=== PATIENT | male | born 1950 | race Caucasian/White ===

== ENCOUNTER 2017-04-05 09:15 | Outpatient (CLI) | payer MEDICARE, OTHER ==
[2017-04-05 14:02] LABS: BASOPHILS # (AUTO) 0.1 10^3/uL (0.0-0.1); BASOPHILS % (AUTO) 0.7 %; EOSINOPHILS # (AUTO) 0.2 10^3/uL (0.0-0.7); EOSINOPHILS % (AUTO) 1.8 %; HCT - HEMATOCRIT 34.8 % (42.0-52.0); HGB - HEMOGLOBIN 11.2 g/dL (14.0-18.0); LYMPHOCYTES % (AUTO) 22.3 %; MEAN CORPUSCULAR HEMOGLOBIN 24.6 pg (27.0-31.0); MEAN CORPUSCULAR HGB CONC 32.2 g/dL (32.0-36.0); MEAN CORPUSCULAR VOLUME 76.4 fL (80.0-94.0); MEAN PLATELET VOLUME 7.6 fL (7.4-11.4); MONOCYTES # (AUTO) 0.6 10^3/uL (0.0-1.0); MONOCYTES % (AUTO) 6.8 %; NEUTROPHILS % (AUTO) 68.4 %; NUCLEATED RED BLOOD CELLS AUTO 0.1 /100WBC; RED BLOOD COUNT 4.55 10^6/uL (4.70-6.10); UNCORRECTED WHITE BLOOD COUNT 8.7 x10^3/uL; WHITE BLOOD COUNT 8.7 x10^3/uL (4.8-10.8)
[2017-04-05 14:34] LABS: ALBUMIN/GLOBULIN RATIO 1.4 (1.0-2.2); BILIRUBIN,TOTAL 0.5 mg/dL (0.2-1.0); BUN - BLOOD UREA NITROGEN 17 mg/dL (6-20); CALCIUM 9.1 mg/dL (8.5-10.3); CARBON DIOXIDE - CO2 24 mmol/L (21-32); CHLORIDE 100 mmol/L (101-111); CHOL/HDL RATIO 5.2 (<5.0); CHOLESTEROL 224 mg/dL; CREATININE 1.2 mg/dL (0.6-1.2); GFR - MDRD 60 (>89); GLUCOSE 98 mg/dL (70-100); HDL CHOLESTEROL 43 mg/dL; LDL/HDL RATIO 3.4 (<3.6); POTASSIUM 3.3 mmol/L (3.5-5.0); SODIUM 134 mmol/L (135-145); TOTAL PROTEIN 7.1 g/dL (6.7-8.2); TRIGLYCERIDES 169 mg/dL; VLDL CHOLESTEROL 34 mg/dL
== END 2017-04-05 09:16 | disposition home or self-care (01) ==
LOC: LAB.WCP 09:15
PROVIDERS: ATTEND Physician Assistant Medical
DX: E78.5 Hyperlipidemia, unspecified (principal); D50.9 Iron deficiency anemia, unspecified; K21.9 Gastro-esophageal reflux disease without esophagitis
CPT/HCPCS: 36415; 80053; 80061; 82728; 85025

== ENCOUNTER 2017-05-05 15:34 | Outpatient (CLI) | payer MEDICARE, OTHER ==
[2017-05-05 13:19] LABS: BASOPHILS % (AUTO) 0.4 %; EOSINOPHILS # (AUTO) 0.3 10^3/uL (0.0-0.7); EOSINOPHILS % (AUTO) 4.4 %; HCT - HEMATOCRIT 33.6 % (42.0-52.0); HGB - HEMOGLOBIN 10.8 g/dL (14.0-18.0); LYMPHOCYTES % (AUTO) 31.4 %; MEAN CORPUSCULAR HEMOGLOBIN 25.1 pg (27.0-31.0); MEAN CORPUSCULAR HGB CONC 32.3 g/dL (32.0-36.0); MEAN CORPUSCULAR VOLUME 77.8 fL (80.0-94.0); MEAN PLATELET VOLUME 7.9 fL (7.4-11.4); MONOCYTES # (AUTO) 0.6 10^3/uL (0.0-1.0); NEUTROPHILS # (AUTO) 3.4 10^3/uL (1.5-6.6); NEUTROPHILS % (AUTO) 54.8 %; NUCLEATED RED BLOOD CELLS AUTO 0.1 /100WBC; RED BLOOD COUNT 4.31 10^6/uL (4.70-6.10); RED CELL DISTRIBUTION WIDTH 18.8 % (12.0-15.0); UNCORRECTED WHITE BLOOD COUNT 6.2 x10^3/uL; WHITE BLOOD COUNT 6.2 x10^3/uL (4.8-10.8)
[2017-05-05 13:57] LABS: CHOL/HDL RATIO 3.4 (<5.0); CHOLESTEROL 139 mg/dL; HDL CHOLESTEROL 41 mg/dL; IRON 213 ug/dL (45-182); LDL/HDL RATIO 1.9 (<3.6); TOTAL IRON BINDING CAPACITY 476 ug/dL (250-450); TRANSFERRIN 340 mg/dL (180-329); TRIGLYCERIDES 94 mg/dL; VLDL CHOLESTEROL 19 mg/dL
== END 2017-05-05 15:35 | disposition home or self-care (01) ==
LOC: LAB.WCP 15:34
PROVIDERS: ATTEND Physician Assistant Medical
DX: E78.5 Hyperlipidemia, unspecified (principal); D50.9 Iron deficiency anemia, unspecified
CPT/HCPCS: 36415; 80061; 82728; 83540; 84466; 85025

== ENCOUNTER 2017-12-31 17:58 | Emergency (ER) | payer MEDICARE, OTHER ==
[2017-12-31] MEDS ORDERED: METOPROLOL 5 MG/5 ML VIAL IVP STA (18:15)
[2017-12-31] MEDS ORDERED: HEPARIN 25000UNITS/500ML (D5W) 25,000 UNIT/500 ML BAG IV STA (18:15)
[2017-12-31] MEDS ORDERED: ASPIRIN CHEW 81 MG TABLET ONE ×2 (18:22→18:48)
[2017-12-31] MEDS ORDERED: CLOPIDOGREL 300 MG TABLET PO ONE ×2 (18:22→18:48)
[2017-12-31] MEDS ORDERED: HEPARIN 5,000 UNIT/ML VIAL ONE ×2 (18:22→18:48)
[2017-12-31 18:24] VITALS: BP 176/88
--- NOTE | 2017-12-31 18:24 | ED Physician Documentation ---
PD HPI CHEST PAIN - Stated complaint Stated Complaint: CHEST PX - Chief complaint Chief Complaint: Cardiac - History obtained from History obtained from: Patient - History of Present Illness Timing - onset: How many hours ago (2) Timing - onset during: Rest, Light activity Timing - duration: Hours (2) Timing - details: Abrupt onset, Still present Quality: Pressure, Tightness, Aching, Pain Location: Substernal, Left chest Radiation: Back. No: Jaw, Neck Improved by: No: Rest, Antacids Worsened by: No: Exertion, Inspiration, Movement Associated symptoms: Shortness of air, Feeling faint / dizzy, General Weakness. No: Nausea, Palpitations, Cough Similar symptoms before: Has not had sx before, Other (had ID about 9 years ago with stent placed and no subsequent heart symptoms. Does not follow with Sonoscope Operator at this time.) Recently seen: Not recently seen Review of Systems Constitutional: denies: Fever, Chills Nose: denies: Rhinorrhea / runny nose, Congestion Throat: denies: Sore throat Cardiac: reports: Chest pain / pressure (just today; no exertional symptoms.) Respiratory: denies: Cough GI: denies: Abdominal Pain, Nausea, Vomiting : denies: Dysuria, Frequency Skin: denies: Rash, Lesions Neurologic: denies: Generalized weakness, Focal weakness, Numbness, Near syncope PD PAST MEDICAL HISTORY - Past Medical History Cardiovascular: Hypertension, High cholesterol, Coronary artery disease, ID (9 years ago with stent) Respiratory: None Endocrine/Autoimmune: None GI: GERD, Colon polyps : None HEENT: None Psych: None Musculoskeletal: None Derm: None - Past Surgical History General: Appendectomy, Colonoscopy, EGD Cardiovascular: Coronary stent, Cardiac catheterization - Present Medications Home Medications: Ambulatory Orders Medication Instructions Recorded Confirmed Aspirin [Durga] 325 mg ORAL DAILY 01/05/16 03/02/16 Esomeprazole [NexIUM] 40 mg ORAL DAILY 01/05/16 03/02/16 Simvastatin 40 mg ORAL DAILY 01/05/16 03/02/16 raNITIdine [Zantac] 250 mg ORAL BID 01/05/16 03/03/16 Lisinopril 40 mg PO DAILY 03/02/16 03/02/16 - Allergies Allergies/Adverse Reactions: Allergies Allergy/AdvReac Type Severity Reaction Status Date / Time Penicillins Allergy Rash Verified 01/05/16 14:28 - Family History Family history: reports: Non contributory, Unknown PD ED PE NORMAL - Vitals Vital signs reviewed: Yes - General General: Alert and oriented X 3, No acute distress, Well developed/nourished - HEENT HEENT: Pharynx benign - Neck Neck: Supple, no meningeal sign, No adenopathy - Cardiac Cardiac: RRR, No murmur - Respiratory Respiratory: Clear bilaterally - Abdomen Abdomen: Soft, Non tender - Derm Derm: Normal color, Warm and dry - Extremities Extremities: No deformity, No tenderness to palpate, Normal ROM s pain, No edema , No calf tenderness / cord - Neuro Neuro: Alert and oriented X 3, No motor deficit, Normal speech - Psych Psych: Normal mood, Normal affect Results - Vitals Vitals: Vital Signs - 24 hr 12/31/17 18:02 Temperature 36.0 C L Heart Rate 90 Respiratory 17 Rate Blood Pressure 191/107 H O2 Saturation 98 Oxygen O2 Source Room air - EKG (time done) triage Rhythm: NSR [place]: Normal Intervals: Normal [place] QRS: Normal Ischemia: ST elevation c/w ischemia (inferior lead), ST depression (lateral leads) PD MEDICAL DECISION MAKING - ED course Complexity details: considered differential (significant ST changes (elevations with reciprocal depressions) c/w STEMI. ), d/w patient, d/w securities consultant - Critical Care Time(min): 20 Time Includes: Direct patient care, Document care, Coordinate care, Medical consult, See progress note Data interpretation: Pulse ox, See progress note Procedures excluded from critical care time: EKG Departure - Departure Disposition: 02 Transfer Acute Care Hosp Clinical Impression: ST elevation myocardial infarction (STEMI) of inferior wall Condition: Stable Record reviewed to determine appropriate education?: Yes
[2017-12-31 18:36] LABS: BASOPHILS % (AUTO) 0.4 %; EOSINOPHILS # (AUTO) 0.1 10^3/uL (0.0-0.7); EOSINOPHILS % (AUTO) 2.1 %; HGB - HEMOGLOBIN 10.6 g/dL (14.0-18.0); LYMPHOCYTES # (AUTO) 1.1 10^3/uL (1.5-3.5); LYMPHOCYTES % (AUTO) 19.9 %; MEAN CORPUSCULAR HEMOGLOBIN 23.2 pg (27.0-31.0); MEAN CORPUSCULAR HGB CONC 30.9 g/dL (32.0-36.0); MEAN CORPUSCULAR VOLUME 75.1 fL (80.0-94.0); MEAN PLATELET VOLUME 7.6 fL (7.4-11.4); MONOCYTES # (AUTO) 0.5 10^3/uL (0.0-1.0); MONOCYTES % (AUTO) 8.5 %; NEUTROPHILS # (AUTO) 3.7 10^3/uL (1.5-6.6); NEUTROPHILS % (AUTO) 69.1 %; PLT - PLATELET COUNT 293 10^3/uL (130-450); RED BLOOD COUNT 4.58 10^6/uL (4.70-6.10); RED CELL DISTRIBUTION WIDTH 17.5 % (12.0-15.0); WHITE BLOOD COUNT 5.4 x10^3/uL (4.8-10.8)
[2017-12-31 18:45] LABS: ALBUMIN 4.1 g/dL (3.2-5.5); ALBUMIN/GLOBULIN RATIO 1.2 (1.0-2.2); BILIRUBIN,TOTAL 0.4 mg/dL (0.2-1.0); CALCIUM 9.2 mg/dL (8.5-10.3); CREATININE 1.1 mg/dL (0.6-1.2); TOTAL PROTEIN 7.5 g/dL (6.7-8.2)
[2017-12-31] MEDS ORDERED: METOPROLOL TARTRATE 50 MG TABLET ONE (18:48)
[2017-12-31] MEDS ORDERED: NITROGLYCERIN SL 0.4 MG TABLET SL ONE (18:48)
[2017-12-31] MEDS ORDERED: AZITHROMYCIN 250 MG TABLET PO ONE (18:50)
[2017-12-31] MEDS ORDERED: ASPIRIN CHEW 81 MG TABLET PO STA (18:52)
[2017-12-31] MEDS ORDERED: HEPARIN 5,000 UNIT/ML VIAL IVP STA (18:52)
[2017-12-31] MEDS ORDERED: CLOPIDOGREL 300 MG TABLET PO STA (18:52)
== END 2017-12-31 18:27 | disposition short-term general hospital (02) ==
LOC: ED 17:58
DX: I21.19 ST elevation (STEMI) myocardial infarction involving other coronary artery of inferior wall (principal); I10 Essential (primary) hypertension; E78.00 Pure hypercholesterolemia, unspecified; I25.10 Atherosclerotic heart disease of native coronary artery without angina pectoris; I25.2 Old myocardial infarction; K21.9 Gastro-esophageal reflux disease without esophagitis; Z86.010 Personal history of colon polyps; Z79.82 Long term (current) use of aspirin
CPT/HCPCS: 36415; 80053; 83690; 84484; 85025; 93005; 96374; 99284; 99285; A9270

== ENCOUNTER 2017-12-31 18:28 | Outpatient (CLI) | payer MEDICARE, OTHER | END 2017-12-31 18:29 | disposition short-term general hospital (02) | LOC: EMS 18:28 | PROVIDERS: ATTEND Surgery | DX: I21.3 ST elevation (STEMI) myocardial infarction of unspecified site (principal) | CPT/HCPCS: A0425; A0426 ==

== ENCOUNTER 2018-05-10 16:26 | Observation (INO) | payer MEDICARE, OTHER ==
[2018-05-10 17:10] LABS: EOSINOPHILS # (AUTO) 0.1 10^3/uL (0.0-0.7); EOSINOPHILS % (AUTO) 2.7 %; LYMPHOCYTES % (AUTO) 20.8 %; MEAN CORPUSCULAR HEMOGLOBIN 18.9 pg (27.0-31.0); MEAN CORPUSCULAR HGB CONC 29.4 g/dL (32.0-36.0); MEAN CORPUSCULAR VOLUME 64.3 fL (80.0-94.0); MEAN PLATELET VOLUME 7.5 fL (7.4-11.4); MONOCYTES # (AUTO) 0.5 10^3/uL (0.0-1.0); MONOCYTES % (AUTO) 10.4 %; NEUTROPHILS # (AUTO) 3.2 10^3/uL (1.5-6.6); NEUTROPHILS % (AUTO) 65.1 %; PLT - PLATELET COUNT 332 10^3/uL (130-450); RED BLOOD COUNT 3.63 10^6/uL (4.70-6.10)
[2018-05-10 17:13] LABS: HGB - HEMOGLOBIN 6.9 g/dL (14.0-18.0)
[2018-05-10 17:15] LABS: ALBUMIN 4.2 g/dL (3.2-5.5); ALBUMIN/GLOBULIN RATIO 1.3 (1.0-2.2); ALKALINE PHOSPHATASE 69 IU/L (42-121); ALT ALANINE AMINOTRANSFERASE 16 IU/L (10-60); AST ASPARTATE AMINOTRANSFERASE 17 IU/L (10-42); BILIRUBIN,TOTAL < 0.2 mg/dL (0.2-1.0); BUN - BLOOD UREA NITROGEN 19 mg/dL (6-20); CARBON DIOXIDE - CO2 26 mmol/L (21-32); CHLORIDE 104 mmol/L (101-111); CREATININE 0.9 mg/dL (0.6-1.2); GFR - MDRD 84 (>89); GLUCOSE 119 mg/dL (70-100); LIPASE 24 U/L (22-51); SODIUM 137 mmol/L (135-145); TOTAL PROTEIN 7.4 g/dL (6.7-8.2)
[2018-05-10 17:26] LABS: PLATELET ESTIMATE, MANUAL NORMAL (130-450,000) (NORMAL); PLATELET MORPHOLOGY NORMAL APPEARANCE (NORMAL)
--- NOTE | 2018-05-10 17:32 | ED Physician Documentation ---
PD HPI CHEST PAIN - Stated complaint Stated Complaint: CHEST PX - Chief complaint Chief Complaint: Cardiac - History obtained from History obtained from: Patient - History of Present Illness Timing - onset: How many minutes ago (45) Timing - duration: Minutes (40) Timing - details: Abrupt onset, Now resolved Pain level max: 8 Pain level now: 0 Quality: Other (BURNING) Location: Other ([place]) Radiation: Other (NO RADIATION) Improved by: Antacids Worsened by: Other (NOTHING) Associated symptoms: No: Shortness of air, Diaphoresis, Nausea, Vomiting, Feeling faint / dizzy, General Weakness, Palpitations, Cough Similar symptoms before: Other (HAS HX OF GERD/REFLUX) Recently seen: Not recently seen - Additional information Additional information: Pt complained of midsternal burning pain 45 minutes ago. Took his zantac and nexium without relief. Pain did not radiate but last 40 minutes. Dnies associated symptoms. Pt stated had an [place] lst December 31, 2017 and had a stent put in at [facility]. Pt stated at noon he had [employer] sandwich. Denies any trauma, travel or immobility. States active and working where he does a lot of walking. Review of Systems Ten Systems: 10 systems reviewed and negative Constitutional: denies: Fever Nose: denies: Congestion Cardiac: reports: Chest pain / pressure. denies: Palpitations, Pedal edema Respiratory: denies: Dyspnea, Cough GI: denies: Abdominal Pain, Nausea Neurologic: denies: Generalized weakness, Near syncope, Syncope PD PAST MEDICAL HISTORY - Past Medical History Cardiovascular: Hypertension, High cholesterol, Coronary artery disease, Angina, [place] Respiratory: None Endocrine/Autoimmune: None GI: GERD, Colon polyps : None HEENT: None Psych: None Musculoskeletal: None Derm: None - Past Surgical History Past Surgical History: Yes General: Appendectomy, Colonoscopy, EGD Cardiovascular: Coronary stent, Cardiac catheterization - Present Medications Home Medications: Ambulatory Orders Medication Instructions Recorded Confirmed Aspirin [Durga] 325 mg ORAL DAILY 01/05/16 03/02/16 Esomeprazole [NexIUM] 40 mg ORAL DAILY 01/05/16 03/02/16 Simvastatin 40 mg ORAL DAILY 01/05/16 03/02/16 raNITIdine [Zantac] 250 mg ORAL BID 01/05/16 03/03/16 Lisinopril 40 mg PO DAILY 03/02/16 03/02/16 - Allergies Allergies/Adverse Reactions: Allergies Allergy/AdvReac Type Severity Reaction Status Date / Time Penicillins Allergy Rash Verified 05/10/18 16:32 - Social History Does the pt smoke?: No Smoking Status: Never smoker PD ED PE NORMAL - Vitals Vital signs reviewed: Yes - General General: Alert and oriented X 3, No acute distress, Well developed/nourished - HEENT HEENT: Moist mucous membranes - Neck Neck: Supple, no meningeal sign - Cardiac Cardiac: RRR, No murmur - Respiratory Respiratory: No respiratory distress, Clear bilaterally - Abdomen Abdomen: Normal bowel sounds, Soft, Non tender, Non distended - Derm Derm: Warm and dry - Extremities Extremities: No deformity, Normal ROM s pain - Neuro Neuro: Alert and oriented X 3 - Psych Psych: Normal mood, Normal affect Results - Vitals Vitals: Vital Signs - 24 hr 05/10/18 05/10/18 05/10/18 16:30 17:40 18:53 Temperature 36.5 C Heart Rate 95 79 73 Respiratory 16 16 17 Rate Blood Pressure 177/91 H 153/70 H 155/77 H O2 Saturation 98 98 98 05/10/18 05/10/18 19:35 19:47 Temperature 36.9 C 36.7 C Heart Rate 72 75 Respiratory 17 17 Rate Blood Pressure 152/85 H 152/85 H O2 Saturation Oxygen O2 Source Room air - EKG (time done) 1631 Rate: Rate (enter#) Rhythm: NSR [place]: LAD Intervals: Normal [place] QRS: Normal Ischemia: Normal ST segments - Labs Labs: Laboratory Tests 05/10/18 05/10/18 05/10/18 16:40 16:40 16:40 WBC 5.0 RBC 3.63 L Hgb 6.9 L* Hct 23.4 L MCV 64.3 L MCH 18.9 L MCHC 29.4 L RDW 21.0 H Plt Count 332 MPV 7.5 Neut # (Auto) 3.2 Lymph # (Auto) 1.0 L [place] # (Auto) 0.5 Eos # (Auto) 0.1 Baso # (Auto) 0.0 Absolute Nucleated RBC 0.00 Nucleated RBC % 0.1 Manual Slide Review Indicated WBC Morphology NORMAL APPEARANCE Platelet Estimate NORMAL (130-450,000) Platelet Morphology NORMAL APPEARANCE RBC Morph Micro Appear 3+ MICROCYTOSIS Sodium 137 Potassium 4.0 Chloride 104 Carbon Dioxide 26 Anion Gap 7.0 BUN 19 Creatinine 0.9 Estimated GFR (MDRD) 84 L Glucose 119 H Calcium 9.0 Total Bilirubin < 0.2 L AST 17 ALT 16 Alkaline Phosphatase 69 Troponin I < 0.04 Total Protein 7.4 Albumin 4.2 Globulin 3.2 Albumin/Globulin Ratio 1.3 Lipase 24 Blood Type Blood Type Recheck Antibody Screen Crossmatch IS Only 05/10/18 05/10/18 05/10/18 16:40 17:39 17:39 WBC 4.9 RBC 3.47 L Hgb 6.5 L* Hct 22.3 L MCV 64.4 L MCH 18.7 L MCHC 29.0 L RDW 20.6 H Plt Count 294 MPV 7.8 Neut # (Auto) 3.5 Lymph # (Auto) 0.8 L [place] # (Auto) 0.5 Eos # (Auto) 0.1 Baso # (Auto) 0.0 Absolute Nucleated RBC 0.00 Nucleated RBC % 0.0 Manual Slide Review WBC Morphology Platelet Estimate Platelet Morphology RBC Morph Micro Appear Sodium Potassium Chloride Carbon Dioxide Anion Gap BUN Creatinine Estimated GFR (MDRD) Glucose Calcium Total Bilirubin AST ALT Alkaline Phosphatase Troponin I Total Protein Albumin Globulin Albumin/Globulin Ratio Lipase Blood Type O POSITIVE Blood Type Recheck O POSITIVE Antibody Screen NEGATIVE Crossmatch IS Only See Detail 05/10/18 19:25 WBC RBC Hgb Hct MCV MCH MCHC RDW Plt Count MPV Neut # (Auto) Lymph # (Auto) [place] # (Auto) Eos # (Auto) Baso # (Auto) Absolute Nucleated RBC Nucleated RBC % Manual Slide Review WBC Morphology Platelet Estimate Platelet Morphology RBC Morph Micro Appear Sodium Potassium Chloride Carbon Dioxide Anion Gap BUN Creatinine Estimated GFR (MDRD) Glucose Calcium Total Bilirubin AST ALT Alkaline Phosphatase Troponin I 0.07 Total Protein Albumin Globulin Albumin/Globulin Ratio Lipase Blood Type Blood Type Recheck Antibody Screen Crossmatch IS Only PD MEDICAL DECISION MAKING - ED course Complexity details: reviewed results, re-evaluated patient ([id number] Pt informed of test results including low hemoglogin. Agreed to blood transfusion. Denies any chest pain or SOB. Per [facility], hospitalist had been called. 1846 Pt NAD. Awaiting hospitalist to return phone call. 1909 Pt denies any cp/sob. Rectal exam - no mass, nontender. Brown yellow stool guiac negative. Still waiting for hospitalist per [facility] [place] considered differential (ACS, NSTEMI, GERD), d/w patient, d/w family, other ([address] Chapman returned phone call. Case discussed in details. He wants anemia panel to be ordered prior to blood transfusion. He will admit pt to observation. Pt's nurse informed of added lab orders prior to blood transfusion.) Departure - Departure Disposition: 66 [facility] DC/Xfer Clinical Impression: Chest pain Qualifiers: Chest pain type: other chest pain Qualified Code(s): R07.89 - Other chest pain Anemia Qualifiers: Anemia type: unspecified type Qualified Code(s): D64.9 - Anemia, unspecified Condition: Good
--- NOTE | 2018-05-10 17:35 | XRAY Report ---
Reason: chest pain Procedure Date: 05/10/2018 Accession Number: [id number] / [id number] Procedure: XR - Chest 2 View X-Ray CPT Code: 02653 FULL RESULT: EXAM: CHEST RADIOGRAPHY EXAM DATE: 05/10/2018 05:16 PM. CLINICAL HISTORY: Chest pain. COMPARISON: CHEST 2 VIEW PA/LAT 04/10/2017 9:26 AM. TECHNIQUE: 2 views. FINDINGS: Lungs/Pleura: No focal opacities evident. No pleural effusion. No pneumothorax. Normal volumes. Mediastinum: There is a small to moderate hiatal hernia appearing without significant change in size. The heart size is normal. There is mild atherosclerotic calcification of the aortic arch. Other: None. IMPRESSION: Negative for acute cardiopulmonary abnormality. Small to moderate hiatal hernia is unchanged. RADIA
[2018-05-10 18:01] LABS: BASOPHILS % (AUTO) 0.4 %; EOSINOPHILS # (AUTO) 0.1 10^3/uL (0.0-0.7); EOSINOPHILS % (AUTO) 2.1 %; LYMPHOCYTES # (AUTO) 0.8 10^3/uL (1.5-3.5); LYMPHOCYTES % (AUTO) 17.1 %; MEAN CORPUSCULAR HEMOGLOBIN 18.7 pg (27.0-31.0); MEAN CORPUSCULAR VOLUME 64.4 fL (80.0-94.0); MEAN PLATELET VOLUME 7.8 fL (7.4-11.4); MONOCYTES # (AUTO) 0.5 10^3/uL (0.0-1.0); MONOCYTES % (AUTO) 9.7 %; NEUTROPHILS # (AUTO) 3.5 10^3/uL (1.5-6.6); NEUTROPHILS % (AUTO) 70.7 %; PLT - PLATELET COUNT 294 10^3/uL (130-450); RED BLOOD COUNT 3.47 10^6/uL (4.70-6.10); WHITE BLOOD COUNT 4.9 x10^3/uL (4.8-10.8)
[2018-05-10 18:04] LABS: HGB - HEMOGLOBIN 6.5 g/dL (14.0-18.0)
[2018-05-10 18:06] LABS: RED CELL DISTRIBUTION WIDTH 20.6 % (12.0-15.0)
[2018-05-10] MEDS ORDERED: MORPHINE 2 MG/ML CARPUJECT IVP PRN (19:50)
[2018-05-10] MEDS ORDERED: NITROGLYCERIN SL 0.4 MG TABLET SL PRN (19:50)
[2018-05-10] MEDS ORDERED: ZOLPIDEM 5 MG TABLET PO PRN (19:50)
--- NOTE | 2018-05-10 20:01 | HISTORY & PHYSICAL EXAMINATION ---
Chief Complaint - Chief Complaint Chief Complaint: Chest pain History of Present Illness - Admitted From Admitted From:: Emergency department - History Obtained From Records Reviewed: Yes History obtained from: Patient Exam Limitations: None - History of Present Illness HPI Comment/Other: Patient is a 67-year-old gentleman with a past medical history significant for coronary artery disease status post WV in December 2017 status post stent, history of carotid stenosis status post bilateral angioplasty, hypertension, hyperlip idemia and GERD who presented to the emergency department with a chief complaint of chest pain. The patient states that he was in his normal state of health until around 4 PM this afternoon. He states that he had had a jalapeno sandwich and shortly after this began to experience chest pain. He states the chest pain was located in the center of the chest and was sub-sternal without any radiation . He states that it felt similar to the chest pain he had when he had his WV in December but it was much more mild. He states that he thought maybe it was his acid reflux as he had just eaten a jalapeno sandwich and he took some Tums and Nexium. He states that the chest pain remained constant and was not resolving. At this point he decided to come to the emergency department. He states that the chest pain lasted for a total of 45 minutes and had resolved by the time he came to the emergency department. He states that he had no further chest pain after he arrived in the ER. The patient denies any nausea, abdominal pain, diaphoresis or palpitations in association with the chest pain. He denies any black or bloody stools. He denies any shortness of breath at rest or with exertion. The patient states that the chest pain started while he was lying in bed. The patient denies any recent fatigue or lightheadedness. The patient denies any coffee-ground emesis, hematuria or hemoptysis. The patient denies any diarrhea but does state he has been constipated. Patient denies any headaches, blurred vision, runny nose, sore throat, nasal congestion, if occult he swallowing, orthopnea, PND, increased lower extremity swelling, vomiting, urinary urgency, urinary frequency, dysuria, joint swelling, joint pain, muscle aches, back pain, neck stiffness, recent unintentional weight loss, changes in his appetite, skin rashes, hair loss, night sweats or any focal neurologic deficits. On presentation to the emergency department the patient was afebrile his heart rate was mildly elevated at 95 and he was hypertensive with a blood pressure of 177/91. Patient otherwise was not in any respiratory distress and was saturating well on room air. The patient underwent initial EKG which showed some mild ST depression in lead I but otherwise had no major ischemic changes. The patient's chest x-ray was negative for acute cardiopulmonary abnormality. It did show a small to moderate hiatal hernia. The patient then underwent routine lab work and his initial troponin was less than 0.04. The lab work was remarkable for a hemoglobin of 6.9. The patient's previous hemoglobin in December 2017 was 10.6. Given that this was such an acute change the hemoglobin was rechecked and was found to be 6.5. Patient's electrolytes were within normal limits. The patient did undergo iron studies which did show a iron deficiency anemia with a low iron, elevated TIBC and a low ferritin. The patient was placed in observation for symptomatic anemia and will get blood transfusion and further monitoring. The patient did have a stool guaiac in the emergency department which was negative. The patient will also be monitored for chest pain. The patient states that he had a colonoscopy in 2016 with 2 polyps removed both of which were negative for adenoma and carcinoma. The patient did have some sigmoid diverticulosis but no other major findings. History - Past Medical History Cardiovascular: reports: Hypertension, High cholesterol, Coronary artery disease, Angina, [place] Respiratory: reports: None Neuro: reports: None Endocrine/Autoimmune: reports: None GI: reports: GERD, Colon polyps : reports: None HEENT: reports: None Psych: reports: None Musculoskeletal: reports: None Derm: reports: None MRSA Hx?: No - Past Surgical History General: reports: Appendectomy, Colonoscopy, EGD Cardiovascular: reports: Coronary stent, Cardiac catheterization - Family & Social History Family History: Mother: , CAD, W[place], Father: , CAD, [place], Sister: Cancer (Breast cancer), Brother: CAD, [place] Living arrangement: At home Living Situation: With spouse/s.o. Social History Notes: The patient lives in [place] with his . He has been to his second for 35 years. He has 4 children, 2 step kids and 2 biological kids. The patient is a retired [employer]. 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 He has been living in [place] since 1986. The patient is a former smoker quit in 2006. He previously smoked up to 3 packs/day for nearly 30 years. The patient also was previously a heavy drinker but also quit drinking in 2006. He denies any illicit drug use. Meds/Allgy - Home Medications Home Medications: Ambulatory Orders Medication Instructions Recorded Confirmed Aspirin [Durga] 325 mg ORAL DAILY 01/05/16 03/02/16 Esomeprazole [NexIUM] 40 mg ORAL DAILY 01/05/16 03/02/16 Simvastatin 40 mg ORAL DAILY 01/05/16 03/02/16 raNITIdine [Zantac] 250 mg ORAL BID 01/05/16 03/03/16 Lisinopril 40 mg PO DAILY 03/02/16 03/02/16 - Allergies Allergies/Adverse Reactions: Allergies Allergy/AdvReac Type Severity Reaction Status Date / Time Penicillins Allergy Rash Verified 05/10/18 16:32 Review of Systems - Other Findings Other Findings: A comprehensive review of systems was performed the pertinent positives and negatives are stated above in the HPI and the remainder of the review of systems is negative. Prior Level of Functionality: Completely independent with all his activities of daily living. Exam - Vital Signs Reviewed Vital Signs: Yes Vital Signs: Vital Signs x48h Temp Pulse Resp BP Pulse Ox 05/10/18 19:56 36.4 C L 72 18 150/81 H 05/10/18 19:47 36.7 C 75 17 152/85 H 05/10/18 19:35 36.9 C 72 17 152/85 H 05/10/18 18:53 73 17 155/77 H 98 05/10/18 17:40 79 16 153/70 H 98 05/10/18 16:30 36.5 C 95 16 177/91 H 98 - Physical Exam General Appearance: positive: No acute distress, Alert Eyes Bilateral: positive: Normal inspection, PERRL, EOMI, No lid inflammation, No scleral icterus, Other (Conjunctival pallor) ENT: positive: ENT inspection nml, Pharynx nml, Dry mucous membranes. negative: Purulent nasal drainage, Pharyngeal erythema, Oral lesions Neck: positive: Nml inspection, Thyroid nml, No JVD, Trachea midline. negative: Thyromegaly, Lymphadenopathy (R), Lymphadenopathy (L), Carotid bruit, Tracheal deviation Respiratory: positive: Chest non-tender, No respiratory distress, Breath sounds nml. negative: Wheezes, Rales, Rhonchi Cardiovascular: positive: Regular rate & rhythm, No murmur, No gallop Peripheral Pulses: positive: 2+ Abdomen: positive: Non-tender, No organomegaly, Nml bowel sounds, No distention. negative: Guarding, Rebound, Hepatomegaly Rectal: positive: Stool - heme NEG Back: positive: Nml inspection. negative: CVA tenderness (R), CVA tenderness (L) Skin: positive: No rash, Warm, Dry, Pallor Extremities: positive: Non-tender, Full ROM, Nml appearance, No pedal edema Neurologic/Psychiatric: positive: Oriented x3, CN's nml (2-12), Motor nml, Sensation nml, Mood/affect nml Conclusion/Plan - Problem List (1) Symptomatic anemia Conclusion/Plan: Patient presented to the emergency department with chest pain. Initial troponin and EKG were negative. The patient however did have anemia with a hemoglobin of 6.9 which was rechecked and found to be 6.5. Patient's hemoglobin in December 2017 was greater than 10. Patient had no complaints of black or bloody stools and stool guaiac was negative in the emergency department. Patient's iron studies revealed a low iron, high TIBC and low ferritin consistent with iron deficiency anemia. Plan: Given the patient's symptom medic anemia he was placed in observation for transfusion of packed RBCs Transfused 2 units PRBCs Monitor hemoglobin Repeat stool guaiac Patient will need further outpatient workup with EGD which is nonurgent and possible referral to hematology. (2) Chest pain Conclusion/Plan: The patient presented with chest pain that occurred at rest. A resolved after 45 minutes. The patient did take Nexium and ranitidine at home as he thought it was acid reflux. The patient had an WV just 4 months ago and had a stent placed at that time. Patient also has risk factors of hypertension and hyperlipidemia. The patient however was found to be anemic with a hemoglobin of 6.5 which was likely causing stress on the patient's heart and leading to his chest pain. It appears the chest pain is most likely secondary to his anemia rather than cardiac. The patient's troponin and initial EKG were negative. Plan: Continue patient's aspirin and Plavix despite anemia as they are necessary given his recent WV Telemetry monitoring Troponins x3 Echocardiogram Nitroglycerin and morphine as needed for chest pain. Qualifiers: Chest pain type: other chest pain Qualified Code(s): R07.89 - Other chest pain; R07.8 - Other chest pain (3) Iron deficiency anemia Conclusion/Plan: The patient presents to the emergency department with chest pain and was found to have symptomatic anemia with a hemoglobin of 6.5 which was down from greater than 10 just 4 months ago. The patient did have a recent WV and had stent placed. The patient has been on aspirin and Plavix which could precipitate a GI bleed. However the patient stool guaiac is negative and he does not have black or bloody stools that he has noticed. This may just be a nutritional iron deficiency but it is concerning given that the patient is on aspirin and Plavix. Given that the patient has been asymptomatic to this point it is likely a very slow drop in the patient's hemoglobin. The patient did have a colonoscopy 2 years ago which did show several polyps which were all benign on biopsy. Patient has not had an EGD. Plan: Patient will be placed on IV Protonix We will transfuse 2 units of packed RBCs We will start the patient on iron supplements tomorrow We will repeat a stool guaiac if positive will get a surgical consult otherwise patient will need to follow-up outpatient for an EGD and hematology consultation. Continue aspirin and Plavix given recent WV and negative stool guaiac Qualifiers: Iron deficiency anemia type: unspecified iron deficiency Qualified Code(s): D50.9 - Iron deficiency anemia, unspecified (4) History of coronary artery disease Conclusion/Plan: Patient has history of coronary artery disease with an WV in December 2017 status post stent. Patient is currently on aspirin, Plavix, metoprolol, lisinopril and Lipitor. This is optimal treatment for coronary artery disease. We will continue him on this treatment given that he just had an WV 4 months ago. It does not appear that the patient is having a GI bleed but does present with anemia. Despite the anemia we will continue aspirin and Plavix. (5) Hypertension Conclusion/Plan: Patient is a history of hypertension and is hypertensive on presentation. The patient will be continued on his home antihypertensive medications while he is hospitalized. We will continue to monitor his blood pressure and titrate me dications as needed. Qualifiers: Hypertension type: essential hypertension Qualified Code(s): I10 - Essential (primary) hypertension (6) Hyperlipidemia Conclusion/Plan: Patient has a history of hyperlipidemia and is on statin at home. We will continue the patient on statin while he is hospitalized. He appears to be stable at this time. We will check a lipid profile in the morning. Qualifiers: Hyperlipidemia type: unspecified Qualified Code(s): E78.5 - Hyperlipidemia, unspecified - Lab Results Lab results reviewed: Yes Fish Bones: 05/10/18 17:39 05/10/18 16:40 Other Lab Results: Laboratory Results WBC 4.9 x10^3/uL (4.8-10.8) 05/10/18 17:39 RBC 3.47 10^6/uL (4.70-6.10) L 05/10/18 17:39 Hgb 6.5 g/dL (14.0-18.0) L* 05/10/18 17:39 Hct 22.3 % (42.0-52.0) L 05/10/18 17:39 MCV 64.4 fL (80.0-94.0) L 05/10/18 17:39 MCH 18.7 pg (27.0-31.0) L 05/10/18 17:39 MCHC 29.0 g/dL (32.0-36.0) L 05/10/18 17:39 RDW 20.6 % (12.0-15.0) H 05/10/18 17:39 Plt Count 294 10^3/uL (130-450) 05/10/18 17:39 MPV 7.8 fL (7.4-11.4) 05/10/18 17:39 Neut # (Auto) 3.5 10^3/uL (1.5-6.6) 05/10/18 17:39 Lymph # (Auto) 0.8 10^3/uL (1.5-3.5) L 05/10/18 17:39 [place] # (Auto) 0.5 10^3/uL (0.0-1.0) 05/10/18 17:39 Eos # (Auto) 0.1 10^3/uL (0.0-0.7) 05/10/18 17:39 Baso # (Auto) 0.0 10^3/uL (0.0-0.1) 05/10/18 17:39 Absolute Nucleated RBC 0.00 x10^3/uL 05/10/18 17:39 Nucleated RBC % 0.0 /100WBC 05/10/18 17:39 Manual Slide Review Indicated 05/10/18 16:40 WBC Morphology NORMAL APPEARANCE (NORMAL) 05/10/18 16:40 Platelet Estimate NORMAL (130-450,000) (NORMAL) 05/10/18 16:40 Platelet Morphology NORMAL APPEARANCE (NORMAL) 05/10/18 16:40 RBC Morph Micro Appear 1+ ANISOCYTOSIS (NORMAL) 4+ HYPOCHROMASIA (NORMAL) 1+ POLYCHROMASIA (NORMAL) 3+ MICROCYTOSIS (NORMAL) 05/10/18 16:40 RBC Morph Micro Appear 1+ ANISOCYTOSIS (NORMAL) 4+ HYPOCHROMASIA (NORMAL) 1+ POLYCHROMASIA (NORMAL) 3+ MICROCYTOSIS (NORMAL) 05/10/18 16:40 RBC Morph Micro Appear 1+ ANISOCYTOSIS (NORMAL) 4+ HYPOCHROMASIA (NORMAL) 1+ POLYCHROMASIA (NORMAL) 3+ MICROCYTOSIS (NORMAL) 05/10/18 16:40 RBC Morph Micro Appear 1+ ANISOCYTOSIS (NORMAL) 4+ HYPOCHROMASIA (NORMAL) 1+ POLYCHROMASIA (NORMAL) 3+ MICROCYTOSIS (NORMAL) 05/10/18 16:40 Sodium 137 mmol/L (135-145) 05/10/18 16:40 Potassium 4.0 mmol/L (3.5-5.0) 05/10/18 16:40 Chloride 104 mmol/L (101-111) 05/10/18 16:40 Carbon Dioxide 26 mmol/L (21-32) 05/10/18 16:40 Anion Gap 7.0 (6-13) 05/10/18 16:40 BUN 19 mg/dL (6-20) 05/10/18 16:40 Creatinine 0.9 mg/dL (0.6-1.2) 05/10/18 16:40 Estimated GFR (MDRD) 84 (>89) L 05/10/18 16:40 Glucose 119 mg/dL (70-100) H 05/10/18 16:40 Calcium 9.0 mg/dL (8.5-10.3) 05/10/18 16:40 Total Bilirubin < 0.2 mg/dL (0.2-1.0) L 05/10/18 16:40 AST 17 IU/L (10-42) 05/10/18 16:40 ALT 16 IU/L (10-60) 05/10/18 16:40 Alkaline Phosphatase 69 IU/L (42-121) 05/10/18 16:40 Troponin I 0.07 ng/mL (<0.49) 05/10/18 19:25 Total Protein 7.4 g/dL (6.7-8.2) 05/10/18 16:40 Albumin 4.2 g/dL (3.2-5.5) 05/10/18 16:40 Globulin 3.2 g/dL (2.1-4.2) 05/10/18 16:40 Albumin/Globulin Ratio 1.3 (1.0-2.2) 05/10/18 16:40 Lipase 24 U/L (22-51) 05/10/18 16:40 Blood Type O POSITIVE 05/10/18 17:39 Blood Type Recheck O POSITIVE 05/10/18 16:40 Antibody Screen NEGATIVE 05/10/18 17:39 Crossmatch IS Only See Detail 05/10/18 17:39 - EKG Results EKG Interpreted Independently: Yes EKG Findings: ST depression in lead I otherwise no acute ischemic changes noted. Core Measures - Anticipated LOS I expect patient to be DC'd or transferred within 96 hours.: Yes - DVT/VTE - Prophylaxis VTE/DVT Device ordered at admit?: Yes
[2018-05-10 20:04] LABS: MEAN RETIC VALUE 96.5; RED BLOOD COUNT 3.45 10^6/uL (4.70-6.10)
[2018-05-10 20:22] LABS: % IRON SATURATION 3 % (20-50); IRON 15 ug/dL (45-182); TOTAL IRON BINDING CAPACITY 525 ug/dL (250-450); TRANSFERRIN 375 mg/dL (180-329)
[2018-05-10 20:33] LABS: FERRITIN 3.1 ng/mL (23.9-336.2)
[2018-05-10 20:37] LABS: FOLATE 13.03 ng/mL (5.90 - >24.8)
[2018-05-10] MEDS ORDERED: ATORVASTATIN 10 MG TABLET PO SCH (21:00)
[2018-05-10] MEDS: SODIUM CHLORIDE FLUSH 0.9% 10 ML SYRINGE IVP PRN (21:57)
[2018-05-10] MEDS: PANTOPRAZOLE 40 MG VIAL IVP SCH (21:57)
[2018-05-11] MEDS: SODIUM CHLORIDE 0.9% 1,000 ML IV SCH ×2 (00:37→10:40)
[2018-05-11] MEDS: SODIUM CHLORIDE FLUSH 0.9% 10 ML SYRINGE IVP SCH ×3 (00:37→16:23)
[2018-05-11] MEDS: ACETAMINOPHEN 325 MG TABLET PO PRN ×2 (05:19→17:54)
[2018-05-11] MEDS: SODIUM CHLORIDE FLUSH 0.9% 10 ML SYRINGE IVP PRN (06:22)
[2018-05-11] MEDS: PANTOPRAZOLE 40 MG VIAL IVP SCH ×2 (06:22→16:20)
[2018-05-11 06:47] LABS: BASOPHILS % (AUTO) 0.8 %; EOSINOPHILS # (AUTO) 0.2 10^3/uL (0.0-0.7); EOSINOPHILS % (AUTO) 3.5 %; HGB - HEMOGLOBIN 8.6 g/dL (14.0-18.0); LYMPHOCYTES # (AUTO) 1.1 10^3/uL (1.5-3.5); LYMPHOCYTES % (AUTO) 17.9 %; MEAN CORPUSCULAR HEMOGLOBIN 21.5 pg (27.0-31.0); MEAN CORPUSCULAR HGB CONC 31.3 g/dL (32.0-36.0); MEAN CORPUSCULAR VOLUME 68.6 fL (80.0-94.0); MONOCYTES # (AUTO) 0.5 10^3/uL (0.0-1.0); NEUTROPHILS # (AUTO) 4.2 10^3/uL (1.5-6.6); NEUTROPHILS % (AUTO) 69.8 %; PLT - PLATELET COUNT 258 10^3/uL (130-450); RED BLOOD COUNT 4.03 10^6/uL (4.70-6.10); RED CELL DISTRIBUTION WIDTH 25.1 % (12.0-15.0)
[2018-05-11 07:14] LABS: ALBUMIN 3.7 g/dL (3.2-5.5); ALBUMIN/GLOBULIN RATIO 1.4 (1.0-2.2); ALKALINE PHOSPHATASE 62 IU/L (42-121); ALT ALANINE AMINOTRANSFERASE 15 IU/L (10-60); AST ASPARTATE AMINOTRANSFERASE 16 IU/L (10-42); BILIRUBIN,TOTAL 0.5 mg/dL (0.2-1.0); BUN - BLOOD UREA NITROGEN 15 mg/dL (6-20); CALCIUM 8.6 mg/dL (8.5-10.3); CARBON DIOXIDE - CO2 23 mmol/L (21-32); CHLORIDE 104 mmol/L (101-111); CHOL/HDL RATIO 3.1 (<5.0); CHOLESTEROL 134 mg/dL; CREATININE 0.8 mg/dL (0.6-1.2); GFR - MDRD 96 (>89); GLUCOSE 91 mg/dL (70-100); HDL CHOLESTEROL 43 mg/dL; LDL CHOLESTEROL,CALCULATED 74 mg/dL; LDL/HDL RATIO 1.7 (<3.6); SODIUM 135 mmol/L (135-145); TOTAL PROTEIN 6.3 g/dL (6.7-8.2); VLDL CHOLESTEROL 17 mg/dL
[2018-05-11] MEDS ORDERED: CLOPIDOGREL 75 MG TABLET PO SCH (09:00)
[2018-05-11] MEDS ORDERED: LISINOPRIL 20 MG TABLET PO SCH (09:00)
[2018-05-11] MEDS ORDERED: NON FORMULARY MED (Simvastatin [Simvastatin] 40 MG) ORAL SCH (09:00)
[2018-05-11] MEDS ORDERED: POLYETHYLENE GLYCOL 3350 17 GM PACKET PO SCH (09:00)
[2018-05-11] MEDS: FERROUS GLUCONATE 324 MG TABLET PO SCH ×3 (09:27→16:20)
[2018-05-11] MEDS ORDERED: PERFLUTREN LIPID MICROSPHERES 1.65 MG/1.5 ML VIAL IVP ONE (10:35)
[2018-05-11 12:18] LABS: HGB - HEMOGLOBIN 8.7 g/dL (14.0-18.0)
[2018-05-11] MEDS ORDERED: SODIUM CHLORIDE 0.9% 1,000 ML IV SCH (16:13)
--- NOTE | 2018-05-11 16:19 | Discharge Plan ---
Discharge Plan Disposition: 02 Transfer Acute Care Hosp Condition: Good No Smoking: If you smoke, Please STOP! Call for help. Follow-up with: Viry Guevara PA-C [Primary Care Provider] -
[2018-05-11 16:38] VITALS: BP 152/70
--- NOTE | 2018-05-18 20:41 | DISCHARGE SUMMARY ---
Physician: Lizbeth Clark MD DATE OF ADMISSION: 05/10/2018 DATE OF DISCHARGE: 05/11/2018 HISTORY OF PRESENT ILLNESS: This is a 67-year-old white male with a history of obesity, coronary artery disease with [place] in December 2017, requiring stent placement. He has a history of obesity, carotid stenosis that has been revascularized, history of hypertension and hyperlipidemia. The patient presented to the ER with an episode of chest pain that he was not sure if it was his angina pain or indigestion (since he had eaten sandwich with jalapenos previously). The pain lasted for a total of 45 minutes and had resolved by the time he came to the emergency room. Because of his significant and recent coronary history, he was placed in Observation for evaluation of the chest pain. HOSPITAL COURSE AND DISCHARGE DIAGNOSES 1. Non-ST elevation myocardial infarction. The patient's first troponin was not detectable, but the next increased to 0.07, followed by 0.36 and then 0.44. His EKG showed sinus rhythm with left IVCD and poor R progression along with J point elevations in leads III and aVF. There were also lateral ST depressions. The next day's EKG showed resolution of the lateral ST depressions. It was not clear if he had a definite NSTEMI or elevated troponins from demand ischemia secondary to severe anemia (see below). Because of the elevated troponins and EKG changes, I reached out to his cardiology group, which is at [facility]. They accepted the patient in transfer for further management. 2. Iron deficiency anemia. The patient had an admission hemoglobin of 6.9, this was rechecked and dropped to 6.5, therefore it was not a lab error. He had given no complaints of nausea, vomiting, hematemesis, melena or hematochezia. However, this patient had been on aspirin, Plavix, therapeutic heparin for his angiogram as well as taking Motrin p.r.n. pain. The patient received 2 units of blood transfusion while here. The Hospitalist at [facility] also was aware that he would need workup for GI blood loss anemia, which was another reason for transfer. 3. History of coronary artery disease. The patient had angiography and stenting done 4 months previously. He was kept on his cardiac medications while here and they were continued at transfer. There were no further episodes of angina. ALLERGIES: PENICILLIN. MEDICATIONS AT THE TIME OF TRANSFER 1. Aspirin 81 mg daily. 2. Carvedilol 6.25 b.i.d. 3. Plavix 75 mg daily. 4. Crestor 20 mg q.p.m. 5. Zolpidem p.r.n. at night. 6. Lovenox subcutaneous. 7. Omeprazole daily. 8. Pepcid IV b.i.d. LABS AND IMAGING: His admission chest x-ray showed a moderate hiatal hernia, but no pulmonary problem. An Echocardiogram done here showed LVEF of 50% with hypokinesis of the apical and anterolateral holland and grade 2 diastolic dysfunction. There was also severe increased right ventricular size with moderately impaired RV function. The PA pressure was calculated at 49 mmHg consistent with mild pulmonary hypertension. PHYSICAL EXAMINATION AT DISCHARGE: Stable condition VITAL SIGNS: Blood pressure 150/70, heart rate 80 in sinus rhythm, afebrile, room air saturation 99%. HEENT: Unremarkable. NECK: Without JVD and no carotid bruits. CHEST: Clear. HEART: Sounds normal. No murmur. ABDOMEN: Obese. I cannot rule out hepatomegaly. There is no fluid wave. No tenderness. Normal bowel sounds. EXTREMITIES: No edema. NEUROLOGIC: Grossly intact. FOLLOWUP: This will be determined after his hospitalization at [facility]. CODE STATUS: FULL CODE. Time required to complete this entire discharge, discussion with Cardiology and hospitalist for acceptance for transfer, chart review, and dictation: 60 minutes. cc: Viry Guevara PA-C TD: 05/18/2018 19:49 [facility]
== END 2018-05-11 18:40 | disposition short-term general hospital (02) ==
LOC: ED 16:26 → MS2 19:50
PROVIDERS: ADMIT Internal Medicine; ATTEND Internal Medicine
DX: I21.4 Non-ST elevation (NSTEMI) myocardial infarction (principal); D50.9 Iron deficiency anemia, unspecified; I25.10 Atherosclerotic heart disease of native coronary artery without angina pectoris; I10 Essential (primary) hypertension; Z87.891 Personal history of nicotine dependence; E78.5 Hyperlipidemia, unspecified; I27.20 Pulmonary hypertension, unspecified; Z79.02 Long term (current) use of antithrombotics/antiplatelets; Z79.82 Long term (current) use of aspirin; Z79.899 Other long term (current) drug therapy; K21.9 Gastro-esophageal reflux disease without esophagitis
CPT/HCPCS: 36415; 36430; 71046; 80053; 80061; 82274; 82607; 82728; 82746; 83540; 83615; 83690; 83880; 84466; 84484; 85014; 85018; 85025; 85044; 86850; 86900; 86901; 86920; 93005; 93306; 96361; 96374; 96375; 96376; 99284; A9270; G0378; P9016; Q9957; 82272; 83721

== ENCOUNTER 2018-05-11 18:30 | Outpatient (CLI) | payer MEDICARE, OTHER | END 2018-05-11 18:31 | disposition short-term general hospital (02) | LOC: EMS 18:30 | PROVIDERS: ATTEND Surgery | DX: I21.4 Non-ST elevation (NSTEMI) myocardial infarction (principal); D50.9 Iron deficiency anemia, unspecified | CPT/HCPCS: A0425; A0426 ==

== ENCOUNTER 2018-05-18 07:51 | Outpatient (CLI) | payer MEDICARE, OTHER ==
[2018-05-18 13:00] LABS: BASOPHILS % (AUTO) 0.6 %; EOSINOPHILS # (AUTO) 0.1 10^3/uL (0.0-0.7); EOSINOPHILS % (AUTO) 2.7 %; HGB - HEMOGLOBIN 9.3 g/dL (14.0-18.0); LYMPHOCYTES # (AUTO) 1.1 10^3/uL (1.5-3.5); LYMPHOCYTES % (AUTO) 27.2 %; MEAN CORPUSCULAR HGB CONC 31.4 g/dL (32.0-36.0); MEAN CORPUSCULAR VOLUME 70.1 fL (80.0-94.0); MEAN PLATELET VOLUME 8.8 fL (7.4-11.4); MONOCYTES # (AUTO) 0.4 10^3/uL (0.0-1.0); MONOCYTES % (AUTO) 10.7 %; NEUTROPHILS # (AUTO) 2.4 10^3/uL (1.5-6.6); NEUTROPHILS % (AUTO) 58.8 %; PLT - PLATELET COUNT 302 10^3/uL (130-450); RED BLOOD COUNT 4.24 10^6/uL (4.70-6.10); RED CELL DISTRIBUTION WIDTH 27.9 % (12.0-15.0); WHITE BLOOD COUNT 4.1 x10^3/uL (4.8-10.8)
[2018-05-18 13:12] LABS: % IRON SATURATION 3 % (20-50); IRON 11 ug/dL (45-182); TOTAL IRON BINDING CAPACITY 426 ug/dL (250-450); TRANSFERRIN 304 mg/dL (180-329)
[2018-05-18 14:17] LABS: PLATELET ESTIMATE, MANUAL NORMAL (130-450,000) (NORMAL); PLATELET MORPHOLOGY NORMAL APPEARANCE (NORMAL)
== END 2018-05-18 07:52 | disposition home or self-care (01) ==
LOC: LAB.WCP 07:51
PROVIDERS: ATTEND Physician Assistant Medical
DX: D50.9 Iron deficiency anemia, unspecified (principal)
CPT/HCPCS: 36415; 82728; 83540; 84466; 85025

== ENCOUNTER 2018-06-15 07:40 | Outpatient (CLI) | payer MEDICARE, OTHER ==
[2018-06-15 13:27] LABS: BASOPHILS % (AUTO) 0.6 %; EOSINOPHILS # (AUTO) 0.1 10^3/uL (0.0-0.7); EOSINOPHILS % (AUTO) 3.1 %; LYMPHOCYTES # (AUTO) 1.3 10^3/uL (1.5-3.5); LYMPHOCYTES % (AUTO) 28.3 %; MEAN CORPUSCULAR HEMOGLOBIN 24.8 pg (27.0-31.0); MEAN CORPUSCULAR HGB CONC 32.2 g/dL (32.0-36.0); MEAN PLATELET VOLUME 8.4 fL (7.4-11.4); MONOCYTES # (AUTO) 0.6 10^3/uL (0.0-1.0); MONOCYTES % (AUTO) 12.5 %; NEUTROPHILS # (AUTO) 2.6 10^3/uL (1.5-6.6); NEUTROPHILS % (AUTO) 55.5 %; PLT - PLATELET COUNT 217 10^3/uL (130-450); RED BLOOD COUNT 4.82 10^6/uL (4.70-6.10); RED CELL DISTRIBUTION WIDTH 33.9 % (12.0-15.0); WHITE BLOOD COUNT 4.7 x10^3/uL (4.8-10.8)
[2018-06-15 13:59] LABS: PLATELET ESTIMATE, MANUAL NORMAL (130-450,000) (NORMAL)
== END 2018-06-15 07:41 | disposition home or self-care (01) ==
LOC: LAB.WCP 07:40
PROVIDERS: ATTEND Physician Assistant Medical
DX: D50.9 Iron deficiency anemia, unspecified (principal)
CPT/HCPCS: 36415; 82728; 85025

== ENCOUNTER 2018-06-27 07:29 | Outpatient (CLI) | payer MEDICARE, OTHER ==
--- NOTE | 2018-06-28 10:23 | CT Report ---
Reason: TOBACCO ABUSE Procedure Date: 06/27/2018 Accession Number: [id number] / [id number] Procedure: CT - Chest/Lung Screen Low Dose W/O CPT Code: FULL RESULT: EXAM CT LUNG SCREEN EXAM DATE: 06/27/2018 08:21 AM. HISTORY: 67-year-old patient with [id number] smoking history. Currently smoking: No. Years since quittin. COMPARISON: None. TECHNIQUE: CT examination of the entire thorax without contrast was performed using low-dose technique. Thin section coronal, axial, sagittal and MIP axial images were obtained. In accordance with CT protocol optimization, one or more of the following dose reduction techniques were utilized for this exam: automated exposure control, adjustment of mA and/or KV based on patient size, or use of iterative reconstructive technique. FINDINGS: Nodules: Right upper lobe: 1.1 cm groundglass image 67 series 4, likely infectious/inflammatory. Right middle lobe: 3 mm calcified granuloma, benign. Right lower lobe: None. Left upper lobe: 5 mm of groundglass image 66 years for, likely infectious/inflammatory. Left lower lobe: None. Emphysema: Mild. Pleura: Unremarkable. Aorta: Calcified arch. Mediastinum: Unremarkable. Coronary calcifications: Extensive, three-vessel. Other pulmonary findings: None. Other extrapulmonary findings: Moderate hiatal hernia. IMPRESSION: Lung-RADS ASSESSMENT CATEGORY: 2 - benign appearance Probability of malignancy: Less than 1% RECOMMENDATION: Continue annual low dose screening CT as per lung RADS recommendations. RADIA
== END 2018-06-27 07:30 | disposition home or self-care (01) ==
LOC: DI 07:29
PROVIDERS: ATTEND Physician Assistant Medical
DX: Z12.2 Encounter for screening for malignant neoplasm of respiratory organs (principal); J43.9 Emphysema, unspecified; Z87.891 Personal history of nicotine dependence

== ENCOUNTER 2018-08-13 08:00 | Outpatient (CLI) | payer MEDICARE, OTHER ==
[2018-08-13 13:01] LABS: BASOPHILS % (AUTO) 0.6 %; EOSINOPHILS # (AUTO) 0.1 10^3/uL (0.0-0.7); EOSINOPHILS % (AUTO) 2.6 %; HGB - HEMOGLOBIN 14.5 g/dL (14.0-18.0); LYMPHOCYTES # (AUTO) 0.9 10^3/uL (1.5-3.5); LYMPHOCYTES % (AUTO) 21.9 %; MEAN CORPUSCULAR HEMOGLOBIN 27.4 pg (27.0-31.0); MEAN CORPUSCULAR HGB CONC 32.9 g/dL (32.0-36.0); MEAN CORPUSCULAR VOLUME 83.4 fL (80.0-94.0); MEAN PLATELET VOLUME 8.4 fL (7.4-11.4); MONOCYTES # (AUTO) 0.5 10^3/uL (0.0-1.0); MONOCYTES % (AUTO) 11.7 %; NEUTROPHILS # (AUTO) 2.7 10^3/uL (1.5-6.6); NEUTROPHILS % (AUTO) 63.2 %; PLT - PLATELET COUNT 203 10^3/uL (130-450); RED CELL DISTRIBUTION WIDTH 22.5 % (12.0-15.0); WHITE BLOOD COUNT 4.2 x10^3/uL (4.8-10.8)
[2018-08-13 13:09] LABS: PLATELET ESTIMATE, MANUAL NORMAL (130-450,000) (NORMAL); PLATELET MORPHOLOGY NORMAL APPEARANCE (NORMAL)
[2018-08-13 13:38] LABS: ALBUMIN/GLOBULIN RATIO 1.3 (1.0-2.2); ALKALINE PHOSPHATASE 73 IU/L (42-121); ALT ALANINE AMINOTRANSFERASE 19 IU/L (10-60); AST ASPARTATE AMINOTRANSFERASE 22 IU/L (10-42); BILIRUBIN,TOTAL 0.4 mg/dL (0.2-1.0); BUN - BLOOD UREA NITROGEN 15 mg/dL (6-20); CALCIUM 9.1 mg/dL (8.5-10.3); CARBON DIOXIDE - CO2 26 mmol/L (21-32); CHLORIDE 103 mmol/L (101-111); CHOL/HDL RATIO 4.1 (<5.0); CHOLESTEROL 224 mg/dL; GFR - MDRD 74 (>89); GLUCOSE 102 mg/dL (70-100); HDL CHOLESTEROL 55 mg/dL; LDL CHOLESTEROL,CALCULATED 143 mg/dL; LDL/HDL RATIO 2.6 (<3.6); SODIUM 136 mmol/L (135-145); TOTAL PROTEIN 7.1 g/dL (6.7-8.2); VLDL CHOLESTEROL 26 mg/dL
== END 2018-08-13 23:59 | disposition home or self-care (01) ==
LOC: LAB.WCP 08:00
PROVIDERS: ATTEND Physician Assistant Medical
DX: I25.10 Atherosclerotic heart disease of native coronary artery without angina pectoris (principal); D50.9 Iron deficiency anemia, unspecified
CPT/HCPCS: 36415; 80053; 80061; 82728; 83721; 85025

== ENCOUNTER 2018-09-07 08:28 | Outpatient (CLI) | payer MEDICARE, OTHER ==
[2018-09-07 13:59] LABS: CHOL/HDL RATIO 2.8 (<5.0); CHOLESTEROL 143 mg/dL; HDL CHOLESTEROL 52 mg/dL; LDL CHOLESTEROL,CALCULATED 74 mg/dL; LDL/HDL RATIO 1.4 (<3.6); VLDL CHOLESTEROL 17 mg/dL
== END 2018-09-07 08:29 | disposition home or self-care (01) ==
LOC: LAB.WCP 08:28
PROVIDERS: ATTEND Physician Assistant Medical
DX: E78.5 Hyperlipidemia, unspecified (principal)
CPT/HCPCS: 36415; 80061; 83721

== ENCOUNTER 2018-11-14 08:00 | Outpatient (CLI) | payer MEDICARE, OTHER ==
[2018-11-14 19:07] LABS: BASOPHILS % (AUTO) 0.5 %; EOSINOPHILS # (AUTO) 0.1 10^3/uL (0.0-0.7); EOSINOPHILS % (AUTO) 2.3 %; HGB - HEMOGLOBIN 14.8 g/dL (14.0-18.0); LYMPHOCYTES # (AUTO) 1.4 10^3/uL (1.5-3.5); LYMPHOCYTES % (AUTO) 25.5 %; MEAN CORPUSCULAR HEMOGLOBIN 30.6 pg (27.0-31.0); MEAN CORPUSCULAR VOLUME 92.7 fL (80.0-94.0); MEAN PLATELET VOLUME 7.5 fL (7.4-11.4); MONOCYTES # (AUTO) 0.6 10^3/uL (0.0-1.0); NEUTROPHILS # (AUTO) 3.4 10^3/uL (1.5-6.6); NEUTROPHILS % (AUTO) 61.7 %; PLT - PLATELET COUNT 198 10^3/uL (130-450); RED BLOOD COUNT 4.85 10^6/uL (4.70-6.10); RED CELL DISTRIBUTION WIDTH 18.5 % (12.0-15.0); WHITE BLOOD COUNT 5.5 x10^3/uL (4.8-10.8)
[2018-11-14 19:26] LABS: BUN - BLOOD UREA NITROGEN 19 mg/dL (6-20); CALCIUM 9.1 mg/dL (8.5-10.3); CARBON DIOXIDE - CO2 25 mmol/L (21-32); CHLORIDE 101 mmol/L (101-111); CHOL/HDL RATIO 3.3 (<5.0); CHOLESTEROL 197 mg/dL; GFR - MDRD 74 (>89); GLUCOSE 92 mg/dL (70-100); HDL CHOLESTEROL 59 mg/dL; LDL CHOLESTEROL,CALCULATED 94 mg/dL; LDL/HDL RATIO 1.6 (<3.6); SODIUM 138 mmol/L (135-145); VLDL CHOLESTEROL 44 mg/dL
== END 2018-11-14 23:59 | disposition home or self-care (01) ==
LOC: LAB.N 08:00
PROVIDERS: ATTEND Internal Medicine Cardiovascular Disease
DX: I25.10 Atherosclerotic heart disease of native coronary artery without angina pectoris (principal)
CPT/HCPCS: 36415; 80048; 80061; 83721; 85025

== ENCOUNTER 2020-09-01 08:00 | Outpatient (CLI) | payer MEDICARE, OTHER ==
[2020-09-01 13:04] LABS: BASOPHILS % (AUTO) 0.6 %; EOSINOPHILS # (AUTO) 0.1 10^3/uL (0.0-0.7); EOSINOPHILS % (AUTO) 1.7 %; HGB - HEMOGLOBIN 7.8 g/dL (14.0-18.0); LYMPHOCYTES # (AUTO) 1.2 10^3/uL (1.5-3.5); LYMPHOCYTES % (AUTO) 18.9 %; MEAN CORPUSCULAR HEMOGLOBIN 19.4 pg (27.0-31.0); MEAN CORPUSCULAR HGB CONC 27.1 g/dL (32.0-36.0); MEAN CORPUSCULAR VOLUME 71.5 fL (80.0-94.0); MEAN PLATELET VOLUME 9.5 fL (7.4-11.4); MONOCYTES # (AUTO) 0.8 10^3/uL (0.0-1.0); MONOCYTES % (AUTO) 11.9 %; NEUTROPHILS # (AUTO) 4.3 10^3/uL (1.5-6.6); NEUTROPHILS % (AUTO) 66.6 %; PLT - PLATELET COUNT 295 10^3/uL (130-450); RED BLOOD COUNT 4.03 10^6/uL (4.70-6.10); RED CELL DISTRIBUTION WIDTH 20.4 % (12.0-15.0); WHITE BLOOD COUNT 6.5 x10^3/uL (4.8-10.8)
[2020-09-01 13:36] LABS: PLATELET ESTIMATE, MANUAL NORMAL (130-450,000) (NORMAL); PLATELET MORPHOLOGY NORMAL APPEARANCE (NORMAL)
[2020-09-01 14:26] LABS: ALBUMIN 4.5 g/dL (3.2-5.5); ALBUMIN/GLOBULIN RATIO 1.6 (1.0-2.2); ALKALINE PHOSPHATASE 67 IU/L (42-121); ALT ALANINE AMINOTRANSFERASE 18 IU/L (10-60); AST ASPARTATE AMINOTRANSFERASE 18 IU/L (10-42); BILIRUBIN,TOTAL 0.3 mg/dL (0.2-1.0); BUN - BLOOD UREA NITROGEN 19 mg/dL (6-20); CARBON DIOXIDE - CO2 24 mmol/L (21-32); CHLORIDE 102 mmol/L (101-111); CHOL/HDL RATIO 2.6 (<5.0); CHOLESTEROL 120 mg/dL; CREATININE 0.9 mg/dL (0.6-1.2); GLUCOSE 87 mg/dL (70-100); HDL CHOLESTEROL 47 mg/dL; LDL CHOLESTEROL,CALCULATED 52 mg/dL; LDL/HDL RATIO 1.1 (<3.6); TOTAL PROTEIN 7.3 g/dL (6.7-8.2); VLDL CHOLESTEROL 21 mg/dL
[2020-09-02 12:23] LABS: HEPATITIS C ANTIBODY NON-REACTIVE (NON-REACTIVE)
== END 2020-09-01 23:59 ==
LOC: LAB.WCP 08:00
PROVIDERS: ATTEND Physician Assistant Medical
DX: Z01.84 Encounter for antibody response examination (principal); E78.5 Hyperlipidemia, unspecified; K21.9 Gastro-esophageal reflux disease without esophagitis
CPT/HCPCS: 36415; 80053; 80061; 83721; 85025; 86803

== ENCOUNTER 2020-10-06 07:00 | Outpatient (CLI) | payer MEDICARE, OTHER ==
[2020-10-06 18:07] LABS: BASOPHILS % (AUTO) 0.7 %; EOSINOPHILS # (AUTO) 0.1 10^3/uL (0.0-0.7); EOSINOPHILS % (AUTO) 2.1 %; HCT - HEMATOCRIT 36.7 % (42.0-52.0); HGB - HEMOGLOBIN 10.5 g/dL (14.0-18.0); LYMPHOCYTES # (AUTO) 1.1 10^3/uL (1.5-3.5); LYMPHOCYTES % (AUTO) 24.1 %; MEAN CORPUSCULAR HEMOGLOBIN 20.8 pg (27.0-31.0); MEAN CORPUSCULAR HGB CONC 28.6 g/dL (32.0-36.0); MEAN CORPUSCULAR VOLUME 72.7 fL (80.0-94.0); MEAN PLATELET VOLUME 9.6 fL (7.4-11.4); MONOCYTES # (AUTO) 0.5 10^3/uL (0.0-1.0); MONOCYTES % (AUTO) 11.7 %; NEUTROPHILS # (AUTO) 2.7 10^3/uL (1.5-6.6); NEUTROPHILS % (AUTO) 61.2 %; PLT - PLATELET COUNT 283 10^3/uL (130-450); RED BLOOD COUNT 5.05 10^6/uL (4.70-6.10); RED CELL DISTRIBUTION WIDTH 22.3 % (12.0-15.0); WHITE BLOOD COUNT 4.4 x10^3/uL (4.8-10.8)
[2020-10-06 18:11] LABS: SLIDE REVIEW? Indicated
[2020-10-06 18:35] LABS: FERRITIN 6.9 ng/mL (23.9-336.2)
[2020-10-06 20:01] LABS: % IRON SATURATION 3 % (20-50); IRON 15 ug/dL (45-182); TOTAL IRON BINDING CAPACITY 522 ug/dL (250-450); TRANSFERRIN 373 mg/dL (180-329)
[2020-10-06 20:05] LABS: PLATELET ESTIMATE, MANUAL NORMAL (130-450,000) (NORMAL); PLATELET MORPHOLOGY NORMAL APPEARANCE (NORMAL)
== END 2020-10-06 23:59 | disposition home or self-care (01) ==
LOC: LAB.WCP 07:00
PROVIDERS: ATTEND Physician Assistant Medical
DX: D50.9 Iron deficiency anemia, unspecified (principal)
CPT/HCPCS: 36415; 82607; 82728; 83540; 84466; 85025

== ENCOUNTER 2021-01-01 13:57 | Outpatient (CLI) | payer MEDICARE, OTHER | END 2021-01-01 13:58 | disposition home or self-care (01) | LOC: COV 13:57 | PROVIDERS: ATTEND Physician Assistant | DX: Z01.812 Encounter for preprocedural laboratory examination (principal); Z20.822 Contact with and (suspected) exposure to COVID-19 ==

== ENCOUNTER 2022-06-29 14:05 | Outpatient (CLI) | payer MEDICARE, OTHER ==
[2022-06-29 18:35] LABS: ALBUMIN 4.2 g/dL (3.2-5.5); ALBUMIN/GLOBULIN RATIO 1.1 (1.0-2.2); ALKALINE PHOSPHATASE 73 IU/L (42-121); ALT ALANINE AMINOTRANSFERASE 24 IU/L (10-60); AST ASPARTATE AMINOTRANSFERASE 23 IU/L (10-42); BILIRUBIN,TOTAL 0.6 mg/dL (0.2-1.0); BUN - BLOOD UREA NITROGEN 19 mg/dL (6-20); CALCIUM 9.5 mg/dL (8.5-10.3); CARBON DIOXIDE - CO2 27 mmol/L (21-32); CHLORIDE 97 mmol/L (101-111); CHOL/HDL RATIO 3.1 (<5.0); CHOLESTEROL 180 mg/dL; CREATININE 0.8 mg/dL (0.6-1.2); GFR - MDRD 95 (>89); GLUCOSE 94 mg/dL (70-100); HDL CHOLESTEROL 58 mg/dL; LDL CHOLESTEROL,CALCULATED 105 mg/dL; LDL/HDL RATIO 1.8 (<3.6); POTASSIUM 3.9 mmol/L (3.5-5.0); SODIUM 137 mmol/L (135-145); TRIGLYCERIDES 87 mg/dL; VLDL CHOLESTEROL 17 mg/dL
== END 2022-06-29 14:06 | disposition home or self-care (01) ==
LOC: LAB.N 14:05
PROVIDERS: ATTEND Physician Assistant Medical
DX: E78.5 Hyperlipidemia, unspecified (principal)
CPT/HCPCS: 36415; 80053; 80061; 83721

== ENCOUNTER 2022-08-12 10:41 | Day surgery (SDC) | payer MEDICARE, OTHER ==
[2022-08-12] MEDS ORDERED: LACTATED RINGERS 1,000 ML IV ONE ×2 (11:23→13:42)
--- NOTE | 2022-08-12 11:35 | ANESTHESIA ---
Pre-Anesthesia VS, & Labs - Diagnosis anemia, low iron - Procedure EGD and colonoscopy Vital Signs: Temp Pulse Resp BP Pulse Ox O2 Flow Rate 36.7 C 69 20 193/106 H 98 08/12/22 10:56 08/12/22 10:56 08/12/22 10:56 08/12/22 10:56 08/12/22 10:56 Height: 5 ft 10 in Weight (kg): 87 kg Body Mass Index: 27.5 BMI Classification: Overweight - NPO >8 hours Home Medications and Allergies Aspirin [Aspirin EC] 81 mg PO DAILY 05/11/18 Rabeprazole Sodium 20 mg PO QDAC 05/11/18 Rosuvastatin Calcium 20 mg PO QPM 05/11/18 carvediloL [Carvedilol] 6.25 mg PO BID 05/11/18 Allergies/Adverse Reactions: Allergies Allergy/AdvReac Type Severity Reaction Status Date / Time Penicillins Allergy Rash Verified 11/18/20 12:57 Anes History & Medical History - Anesthetic History Anesthesia Complications: reports: No previous complications - Medical History Cardiovascular: reports: Hypertension, High cholesterol, Coronary artery disease, Peripheral Vascular Disease (2006 ashly CEA), Angina, [place] (1989) Pulmonary: reports: None Gastrointestinal: reports: GERD, Colon polyps Urinary: reports: None Neuro: reports: None Musculoskeletal: reports: None Endocrine/Autoimmune: reports: None Blood Disorders: reports: None Skin: reports: None Smoking Status: Former smoker (2006 quit) Psychosocial: reports: Alcohol (rum and coke daily) History of Cancer?: No - Surgical History General: reports: Appendectomy, Colonoscopy, EGD Eyes Ears Nose Throat (EENT): reports: Cataracts Cardiothoracic: reports: Coronary stent, Cardiac catheterization, Other (ashly. CEA) Results - Echo Results Echo Results: Report reviewed (2018, anterior wall motion abnormality, PAP 48 mmHg, EF 50%) Exam General: Alert, Oriented x3, Cooperative, No acute distress Dental: Dentures full Upper, Partials Lower Mouth Openin Fingerbreadth Neck Mobility: Normal Mallampati classification: III Thyromental Distance: 4-6 cm Mental/Cognitive Status: Alert/Oriented X3, Normal for patient Plan Anesthesia Type: General, Total IV Consent for Procedure(s) Verified and Reviewed: Yes Code Status: Attempt Resuscitation ASA classification: 3-Severe systemic disease Is this case an emergency?: No
[2022-08-12] MEDS ORDERED: PROPOFOL 500 MG/50 ML 500 MG/50 ML VIAL ONE (12:19)
[2022-08-12] MEDS ORDERED: PROPOFOL 200 MG/20 ML VIAL IVP ONE ×2 (12:48→13:19)
[2022-08-12] MEDS ORDERED: SIMETHICONE 40 MG/0.6 ML 30 ML BOTTLE PO ONE (13:10)
--- NOTE | 2022-08-12 14:03 | ANESTHESIA POST OP EVALUATION ---
Anesthesia Post Eval - Post Anesthesia Eval Vitals: Last Vital Signs Temp 36.1 C L 08/12/22 13:38 Pulse 65 08/12/22 13:38 Resp 16 08/12/22 13:38 BP 144/68 H 08/12/22 13:38 Pulse Ox 96 08/12/22 13:38 O2 Flow Rate CV Function Including HR & BP: Stable Pain Control: Satisfactory Nausea & Vomiting: Negative Mental Status: Baseline Respiratory Status: Airway Patent Hydration Status: Satisfactory Anesthesia Complications: None
[2022-08-12 14:22] VITALS: BP 208/91
== END 2022-08-12 10:42 | disposition home or self-care (01) ==
LOC: SDS 10:41
PROVIDERS: ATTEND Surgery
PROC: 0DBK8ZZ Excision of Ascending Colon, Via Natural or Artificial Opening Endoscopic (ICD-10-PCS; 2022-08-12)
PROC: 0DBM8ZZ Excision of Descending Colon, Via Natural or Artificial Opening Endoscopic (ICD-10-PCS; 2022-08-12)
PROC: 0DB98ZX Excision of Duodenum, Via Natural or Artificial Opening Endoscopic, Diagnostic (ICD-10-PCS; principal; 2022-08-12 12:30)
PROC: 0DB78ZX Excision of Stomach, Pylorus, Via Natural or Artificial Opening Endoscopic, Diagnostic (ICD-10-PCS; 2022-08-12 12:30)
DX: D50.9 Iron deficiency anemia, unspecified (principal); D12.2 Benign neoplasm of ascending colon; K63.5 Polyp of colon; K44.9 Diaphragmatic hernia without obstruction or gangrene; I25.10 Atherosclerotic heart disease of native coronary artery without angina pectoris; I25.2 Old myocardial infarction; Z87.891 Personal history of nicotine dependence
CPT/HCPCS: 43239; 45380; 45385; A9270; J7120

== ENCOUNTER 2022-11-17 07:16 | Outpatient (CLI) | payer MEDICARE, OTHER ==
[2022-11-17 11:58] LABS: CALCIUM 9.4 mg/dL (8.5-10.3); CREATININE 0.9 mg/dL (0.6-1.2); POTASSIUM 4.3 mmol/L (3.5-5.0)
== END 2022-11-17 07:17 | disposition home or self-care (01) ==
LOC: LAB.N 07:16
PROVIDERS: ATTEND Physician Assistant Medical
DX: I10 Essential (primary) hypertension (principal)
CPT/HCPCS: 36415; 80048

== ENCOUNTER 2023-03-31 16:05 | Outpatient (CLI) | payer MEDICARE, OTHER ==
--- NOTE | 2023-03-31 18:24 | XRAY Report ---
PROCEDURE: Shoulder 3 View LT INDICATIONS: STRAIN OF MUSCLES AND TENDONS TECHNIQUE: 4 views of the shoulder were acquired. COMPARISON: None. FINDINGS: Bones: No fractures or dislocations. No suspicious bony lesions. Visualized ribs appear intact. Soft tissues: No suspicious soft tissue calcifications. The visualized lungs are within normal limi ts. IMPRESSION: No acute bony abnormality. Reviewed by: Cornell Cristobal MD on 03/31/2023 5:23 PM [facility] Approved by: Cornell Cristobal MD on 03/31/2023 5:23 PM [facility] Station ID: [id number]
== END 2023-03-31 16:06 | disposition home or self-care (01) ==
LOC: DI 16:05
PROVIDERS: ATTEND Family Medicine
DX: S46.012A Strain of muscle(s) and tendon(s) of the rotator cuff of left shoulder, initial encounter (principal)

== ENCOUNTER 2023-04-05 08:55 | Outpatient (CLI) | payer MEDICARE, OTHER ==
[2023-04-05 12:26] LABS: CHOL/HDL RATIO 4.3 (<5.0); CHOLESTEROL 274 mg/dL; HDL CHOLESTEROL 64 mg/dL; LDL CHOLESTEROL,CALCULATED 190 mg/dL; TRIGLYCERIDES 98 mg/dL (48-352); VLDL CHOLESTEROL 20 mg/dL
== END 2023-04-05 08:56 | disposition home or self-care (01) ==
LOC: LAB.N 08:55
PROVIDERS: ATTEND Physician Assistant Medical
DX: E78.5 Hyperlipidemia, unspecified (principal); Z12.5 Encounter for screening for malignant neoplasm of prostate
CPT/HCPCS: 36415; 80061; G0103; 83721; 84153

== ENCOUNTER 2023-06-19 08:00 | Outpatient (CLI) | payer MEDICARE, OTHER ==
--- NOTE | 2023-06-19 16:05 | XRAY Report ---
PROCEDURE: Shoulder 1 View LT INDICATIONS: LEFT SHOULDER PAIN TECHNIQUE: One view of the shoulder was acquired. For referring clinician's office, this is to the e valuated in conjunction with the prior images from 03/31/2023. COMPARISON: 3 views of the left shoulder dated 03/31/2023 FINDINGS: Bones: No fractures or dislocations. No suspicious bony lesions. Visualized ribs appear intact. Mi ld glenohumeral joint degenerative change. Soft tissues: No suspicious soft tissue calcifications. The visualized lungs are within normal limi ts. IMPRESSION: No acute bony abnormality. Mild glenohumeral joint degenerative change. Comment: Left shoulder MRI may potentially be helpful. Reviewed by: Nathan Moon MD on 06/19/2023 4:03 PM PST Approved by: Nathan Moon MD on 06/19/2023 4:03 PM PST Station ID: [id number]
== END 2023-06-19 23:59 | disposition home or self-care (01) ==
LOC: DI.WOS 08:00
PROVIDERS: ATTEND Physician Assistant Surgical
DX: S46.012D Strain of muscle(s) and tendon(s) of the rotator cuff of left shoulder, subsequent encounter (principal); M19.012 Primary osteoarthritis, left shoulder

== ENCOUNTER 2023-09-26 10:36 | Outpatient (CLI) | payer MEDICARE, OTHER ==
[2023-09-26 12:30] LABS: BASOPHILS % (AUTO) 0.6 %; EOSINOPHILS # (AUTO) 0.1 10^3/uL (0.0-0.7); EOSINOPHILS % (AUTO) 1.6 %; HCT - HEMATOCRIT 44.6 % (42.0-52.0); HGB - HEMOGLOBIN 13.5 g/dL (14.0-18.0); LYMPHOCYTES % (AUTO) 15.4 %; MEAN CORPUSCULAR HEMOGLOBIN 26.1 pg (27.0-31.0); MEAN CORPUSCULAR HGB CONC 30.3 g/dL (32.0-36.0); MEAN CORPUSCULAR VOLUME 86.3 fL (80.0-94.0); MEAN PLATELET VOLUME 9.4 fL (7.4-11.4); MONOCYTES # (AUTO) 0.6 10^3/uL (0.0-1.0); MONOCYTES % (AUTO) 8.7 %; NEUTROPHILS # (AUTO) 4.9 10^3/uL (1.5-6.6); NEUTROPHILS % (AUTO) 73.3 %; PLT - PLATELET COUNT 232 10^3/uL (130-450); RED BLOOD COUNT 5.17 10^6/uL (4.70-6.10); RED CELL DISTRIBUTION WIDTH 22.3 % (12.0-15.0); WHITE BLOOD COUNT 6.8 x10^3/uL (4.8-10.8)
[2023-09-26 12:33] LABS: SLIDE REVIEW? Indicated
[2023-09-26 12:50] LABS: PLATELET ESTIMATE, MANUAL NORMAL (130-450,000) (NORMAL); PLATELET MORPHOLOGY NORMAL APPEARANCE (NORMAL); RBC MORPHOLOGY (MULTIPLE) 3+ ANISOCYTOSIS (NORMAL)
[2023-09-26 15:11] LABS: FERRITIN 558.9 ng/mL (23.9-336.2)
== END 2023-09-26 10:37 | disposition home or self-care (01) ==
LOC: LAB.N 10:36
PROVIDERS: ATTEND Physician Assistant Medical
DX: K92.1 Melena (principal)
CPT/HCPCS: 36415; 82728; 83540; 84466; 85025

== ENCOUNTER 2024-03-14 12:26 | Outpatient (CLI) | payer MEDICARE, OTHER | END 2024-03-14 23:59 | disposition critical access hospital (66) | LOC: EMS 12:26 | DX: S00.83XA Contusion of other part of head, initial encounter (principal); W19.XXXA Unspecified fall, initial encounter; Y92.008 Other place in unspecified non-institutional (private) residence as the place of occurrence of the external cause; Z79.01 Long term (current) use of anticoagulants | CPT/HCPCS: A0425; A0427 ==

== ENCOUNTER 2024-03-14 12:48 | Emergency (ER) | payer MEDICARE, OTHER ==
--- NOTE | 2024-03-14 13:02 | ED Physician Documentation ---
PD HPI SYNCOPE - Stated complaint Stated Complaint: GLF - History obtained from History obtained from: Patient, EMS - History of Present Illness Witnessed: Witnessed Timing - onset: Today Duration: Seconds Preceding symptoms: Light headed, Generalized weakness. No: Chest pain, Abdominal pain Associated symptoms: No: Seizure Contributing factors: No: Just stood up (he had been walking with spouse and felt lightheaded going [employer] store, then noted him pale and sweaty, thne fainted, falling back and struck head. Awoke within minute or so.) Injury occurred: Fell, Head injury (back of head). No: Neck injury Pain level max: 2 Pain level now: 2 Review of Systems Constitutional: denies: Fever, Chills Cardiac: denies: Chest pain / pressure, Palpitations Respiratory: denies: Dyspnea, Cough GI: denies: Abdominal Pain, Nausea, Vomiting, Diarrhea Neurologic: reports: Generalized weakness, Syncope. denies: Focal weakness, Numbness PD PAST MEDICAL HISTORY - Past Medical History Cardiovascular: Hypertension, High cholesterol, Coronary artery disease, Peripheral Vascular Disease (2006 ashly CEA), Angina, [place] (1989) Respiratory: None Neuro: None Endocrine/Autoimmune: None GI: GERD, Colon polyps : None HEENT: None Psych: None Musculoskeletal: None Derm: None - Past Surgical History Past Surgical History: Yes General: Appendectomy, Colonoscopy, EGD Cardiovascular: Coronary stent, Cardiac catheterization, Other (ashly. CEA) HEENT: Cataracts - Present Medications Home Medications: Ambulatory Orders Medication Instructions Recorded Confirmed Rosuvastatin Calcium 40 mg PO QPM 05/11/18 03/14/24 carvediloL [Carvedilol] 25 mg PO DAILY 05/11/18 03/14/24 Clopidogrel [Plavix] 75 mg PO DAILY 03/14/24 03/14/24 Ezetimibe [Zetia] 10 mg PO QD 03/14/24 03/14/24 Losartan Potassium 100 mg PO QPM 03/14/24 03/14/24 Spironolactone [Aldactone] 25 mg PO BID 03/14/24 03/14/24 - Allergies Allergies/Adverse Reactions: Allergies Allergy/AdvReac Type Severity Reaction Status Date / Time Penicillins Allergy Rash Verified 03/14/24 13:02 - Social History Does the pt smoke?: No Smoking Status: Former smoker (2006 quit) PD ED PE NORMAL - Vitals Vital signs reviewed: Yes - General General: Alert and oriented X 3, No acute distress, Well developed/nourished - HEENT HEENT: PERRL, EOMI, Other (back of head with abrasion but no laceration. ) - Neck Neck: Supple, no meningeal sign, No bony TTP, No adenopathy - Cardiac Cardiac: RRR, No murmur - Respiratory Respiratory: Clear bilaterally - Abdomen Abdomen: Soft, Non tender - Derm Derm: Normal color, Warm and dry - Extremities Extremities: No tenderness to palpate - Neuro Neuro: Alert and oriented X 3, No motor deficit, Normal speech Results - Vitals Vitals: Vital Signs - 24 hr 03/14/24 03/14/24 03/14/24 12:56 15:02 16:36 Temperature 36.1 C L 36.1 C L Heart Rate 62 62 65 Respiratory 18 12 19 Rate Blood Pressure 119/67 95/61 112/70 O2 Saturation 95 98 96 Oxygen O2 Source Room air - EKG (time done) 13:10 EKG releavant findings:: EKG personally interpreted by author of this note. Relevant findings are: Rhythm: NSR [place]: Normal Intervals: Normal VA QRS: Normal Ischemia: Normal ST segments. No: ST elevation c/w ischemia, ST depression - Labs Labs: Laboratory Tests 03/14/24 03/14/24 03/14/24 12:54 12:54 12:54 WBC 6.3 RBC 4.48 L Hgb 14.8 Hct 44.3 MCV 98.9 H MCH 33.0 H MCHC 33.4 RDW 13.4 Plt Count 179 MPV 9.2 Neut # (Auto) 4.7 Lymph # (Auto) 0.9 L [place] # (Auto) 0.5 Eos # (Auto) 0.1 Baso # (Auto) 0.0 Absolute Nucleated RBC 0.00 Nucleated RBC % 0.0 Sodium 135 Potassium 4.6 H Chloride 101 Carbon Dioxide 23 Anion Gap 11.0 BUN 32 H Creatinine 2.7 H Estimated GFR (MDRD) 23 L Glucose 98 Calcium 9.3 Magnesium 1.3 L Total Bilirubin 0.8 AST 26 ALT 32 Alkaline Phosphatase 47 Troponin I High Sens 27.9 H* Total Protein 6.6 Albumin 4.0 Globulin 2.6 Albumin/Globulin Ratio 1.5 Lipase < 10 L 03/14/24 14:27 WBC RBC Hgb Hct MCV MCH MCHC RDW Plt Count MPV Neut # (Auto) Lymph # (Auto) [place] # (Auto) Eos # (Auto) Baso # (Auto) Absolute Nucleated RBC Nucleated RBC % Sodium Potassium Chloride Carbon Dioxide Anion Gap BUN Creatinine Estimated GFR (MDRD) Glucose Calcium Magnesium Total Bilirubin AST ALT Alkaline Phosphatase Troponin I High Sens 28.9 H* Total Protein Albumin Globulin Albumin/Globulin Ratio Lipase - Rads (name of study) chest xray Relevant Findings:: Prelim report reviewed, EMP independent interpretation of test (no acute process) head CT Relevant Findings:: Prelim report reviewed (no ICH) cervical SPine CT Relevant Findings:: Prelim report reviewed (arthritic changes. no fractures.), EMP independent interpretation of test PD Medical Decision Making - ED course Complexity details: re-evaluated patient (he is still feeling okay here. BP is good. Not feeling lighteded with standing up. ), considered differential (low BP in 80s systolic per Medics. Spouse states pt was having lightheaded feeling during the days at times fro the past 5-6 days.), d/w patient ED course: Normal labs inclduding tropoinin and repeat troponin. Further discussion with him and his partner, who brought his medications with him. He states he takes one of each med daily. Looking at the bottles, I can see that he has aprior Rx for 90 days along with new Med refill he just piccked up for Losartam 100 mg PO daily. So it eems he was taking double the Losartn daily since he picked up meds at [facility] 03/03/24. Also double dosing his cholesterol statin and Zetia. Departure - Departure Disposition: 01 Home, Self Care Clinical Impression: Syncope and collapse, Transient hypotension, Side effect of medication Condition: Stable Instructions: ED Dizziness Syncope Fainting W Pre Follow-Up: Viry Guevara PA-C [Primary Care Provider] - Comments: Your basic blood test here are looking okay with regard to kidney function, blood sugar, electrolytes, blood count. No signs of heart attack based on blood test and EKG. Chest x-ray does not show any signs of heart failure. You did strike your head and we did a CT of the head and there is no signs of bleeding inside etc. You do have the abrasion on the scalp that should heal up with just cleansing and regular washing and some ointment twice a day. The reason for your lightheaded and fainting sounds likely related to unintentional extra dosing of your blood pressure medicines. You do have duplicates within your bag which were the previous fill of the medications and the recent refills. Be sure to separate out the medications such that there is only 1 prescription out and available of each of the medicines. For now I would continue with the carvedilol and spironolactone as usual. Otherwise I would hold your losartan and Zetia and atorvastatin cholesterol medicine for 3 to 4 days to allow the extra amounts to metabolize out of your system. At that point you can resume the regular doses of those medicines. If you are able to check your blood pressure periodically after that, see how it is doing and if you are having a slightly low blood pressure or you are still having lightheadedness at times, then cut the losartan in half from 100 to 50 mg daily. Follow-up with your primary care. Forms: PCP List Discharge Date/Time: 03/14/24 16:36
[2024-03-14 13:08] LABS: BASOPHILS % (AUTO) 0.3 %; EOSINOPHILS # (AUTO) 0.1 10^3/uL (0.0-0.7); HCT - HEMATOCRIT 44.3 % (42.0-52.0); HGB - HEMOGLOBIN 14.8 g/dL (14.0-18.0); LYMPHOCYTES # (AUTO) 0.9 10^3/uL (1.5-3.5); LYMPHOCYTES % (AUTO) 14.3 %; MEAN CORPUSCULAR HGB CONC 33.4 g/dL (32.0-36.0); MEAN CORPUSCULAR VOLUME 98.9 fL (80.0-94.0); MEAN PLATELET VOLUME 9.2 fL (7.4-11.4); MONOCYTES # (AUTO) 0.5 10^3/uL (0.0-1.0); MONOCYTES % (AUTO) 8.6 %; NEUTROPHILS # (AUTO) 4.7 10^3/uL (1.5-6.6); NEUTROPHILS % (AUTO) 75.3 %; PLT - PLATELET COUNT 179 10^3/uL (130-450); RED BLOOD COUNT 4.48 10^6/uL (4.70-6.10); RED CELL DISTRIBUTION WIDTH 13.4 % (12.0-15.0); WHITE BLOOD COUNT 6.3 x10^3/uL (4.8-10.8)
--- NOTE | 2024-03-14 13:20 | XRAY Report ---
PROCEDURE: Chest 1V INDICATIONS: chest pain TECHNIQUE: One view of the chest was acquired. COMPARISON: CT chest dated 04/26/2023. FINDINGS: Surgical changes and devices: None. Lungs and pleura: No pleural effusions or pneumothorax. Lungs are clear. Mediastinum: Mediastinal contours appear normal. Heart size is normal. At least moderate hiatal her kenroy. Bones and chest wall: No suspicious bony lesions. Overlying soft tissues appear unremarkable. IMPRESSION: At least moderate hiatal hernia. No acute pulmonary process. Reviewed by: Nathan Moon MD on 03/14/2024 1:18 PM PDT Approved by: Nathan Moon MD on 03/14/2024 1:18 PM PDT Station ID: [id number]
[2024-03-14 13:24] LABS: ALBUMIN/GLOBULIN RATIO 1.5 (1.0-2.2); ALKALINE PHOSPHATASE 47 IU/L (42-121); ALT ALANINE AMINOTRANSFERASE 32 IU/L (10-60); AST ASPARTATE AMINOTRANSFERASE 26 IU/L (10-42); BILIRUBIN,TOTAL 0.8 mg/dL (0.2-1.0); BUN - BLOOD UREA NITROGEN 32 mg/dL (6-20); CALCIUM 9.3 mg/dL (8.5-10.3); CARBON DIOXIDE - CO2 23 mmol/L (21-32); CHLORIDE 101 mmol/L (101-111); CREATININE 2.7 mg/dL (0.6-1.3); GFR - MDRD 23 (>89); GLUCOSE 98 mg/dL (74-104); MAGNESIUM 1.3 mg/dL (1.7-2.3); POTASSIUM 4.6 mmol/L (3.5-4.5); SODIUM 135 mmol/L (135-145); TOTAL PROTEIN 6.6 g/dL (6.4-8.9)
[2024-03-14 13:25] LABS: LIPASE < 10 U/L (11-82)
--- NOTE | 2024-03-14 14:17 | CT Report ---
PROCEDURE: Head WO INDICATIONS: syncope, struck head TECHNIQUE: Noncontrast 4.5 mm thick angled axial sections acquired from the foramen magnum to the vertex. For r adiation dose reduction, the following was used: automated exposure control, adjustment of mA and/or kV according to patient size. COMPARISON: None. FINDINGS: Image quality: Excellent. CSF spaces: Basal cisterns are patent. No extra-axial fluid collections. Ventricles are normal in size and shape. Brain: No midline shift. No intracranial masses or hemorrhage. Gleason-white matter interface is norm al. Intracranial carotid calcifications. Age-related volume loss and moderate small vessel ischemic change. Skull and face: Calvarium and visualized facial bones are intact, without suspicious lesions. Sinuses: Visualized sinuses and mastoids are clear. IMPRESSION: No acute intracranial pathology. Age-related volume loss and moderate small vessel ischemic change. Reviewed by: Nathan Moon MD on 03/14/2024 2:15 PM PDT Approved by: Nathan Moon MD on 03/14/2024 2:15 PM PDT Station ID: [id number]
--- NOTE | 2024-03-14 14:24 | CT Report ---
PROCEDURE: Cervical Spine WO INDICATIONS: syncope, struck head TECHNIQUE: Noncontrast 3 mm thick sections acquired from the skull base to the T4 level. Sagittal and coronal r eformats were then constructed. For radiation dose reduction, the following was used: automated exp osure control, adjustment of mA and/or kV according to patient size. COMPARISON: None. FINDINGS: Image quality: Excellent. Bones: No fractures or dislocations. Mild cervical spondylitic change predominantly involving the fa cet joints. Visualized superior ribs are intact. Soft tissues: Prevertebral soft tissues are normal in thickness. No paravertebral hematomas. No ap ical pneumothoraces. IMPRESSION: No acute cervical fracture or dislocation. Reviewed by: Nathan Moon MD on 03/14/2024 2:23 PM PDT Approved by: Nathan Moon MD on 03/14/2024 2:23 PM PDT Station ID: [id number]
[2024-03-14 16:42] VITALS: BP 112/70; O2SAT 96
== END 2024-03-14 16:36 | disposition home or self-care (01) ==
LOC: EDUNIT# → ED 12:48
DX: T46.5X1A Poisoning by other antihypertensive drugs, accidental (unintentional), initial encounter (principal); T46.6X1A Poisoning by antihyperlipidemic and antiarteriosclerotic drugs, accidental (unintentional), initial encounter; R55 Syncope and collapse; I95.9 Hypotension, unspecified; S00.01XA Abrasion of scalp, initial encounter; W18.39XA Other fall on same level, initial encounter; Y92.512 Supermarket, store or market as the place of occurrence of the external cause; Z87.891 Personal history of nicotine dependence
CPT/HCPCS: 36415; 80053; 83690; 83735; 84484; 85025; 93005; 99284

== ENCOUNTER 2024-03-27 15:42 | Emergency (ER) | payer MEDICARE, OTHER ==
--- NOTE | 2024-03-27 16:16 | ED Physician Documentation ---
History of Present Illness - Stated complaint Stated Complaint: DIZZY - Chief complaint Chief Complaint: Neuro - Additonal information Additional information: Patient is a 73-year-old male presenting to the emergency department with lightheadedness symptoms. Patient notes symptoms have been going on since This afternoon after he returned from the grocery store. Patient notes he was at the grocery store was walking around and feeling fine until his drive home when he started to feel lightheaded developed blurry vision and went home and laid down. He notes this was around 11:00. When he woke back up he is still feeling lightheaded his noted he was looking off balance while he was walking so she brought him to the emergency department. Patient was here similarly on 815 after he had a fall and hit the back of his head. Patient had a CT scan of his head at the time and it was negative. His symptoms were determined to be due to high blood pressure medications. Patient quit taking these medications for about a week but restarted them on the . PD PAST MEDICAL HISTORY - Past Medical History Past Medical History: Yes Cardiovascular: Hypertension, High cholesterol, Coronary artery disease, Peripheral Vascular Disease, Angina, [place] Respiratory: None Neuro: None Endocrine/Autoimmune: None GI: GERD, Colon polyps : None HEENT: None Psych: None Musculoskeletal: None Derm: None - Past Surgical History Past Surgical History: Yes General: Appendectomy, Colonoscopy, EGD Cardiovascular: Coronary stent, Cardiac catheterization, Other HEENT: Cataracts - Present Medications Home Medications: Ambulatory Orders Medication Instructions Recorded Confirmed Rosuvastatin Calcium 40 mg PO QPM 05/11/18 03/27/24 carvediloL [Carvedilol] 25 mg PO BID 05/11/18 03/27/24 Clopidogrel [Plavix] 75 mg PO DAILY 03/14/24 03/27/24 Ezetimibe [Zetia] 10 mg PO QD 03/14/24 03/27/24 Losartan Potassium 100 mg PO QPM 03/14/24 03/27/24 Spironolactone [Aldactone] 25 mg PO BID 03/14/24 03/27/24 Ferrous Sulfate [Slow Fe] 137 mg PO DAILY 03/27/24 03/27/24 Folate 800 mcg ORAL DAILY 03/27/24 03/27/24 - Allergies Allergies/Adverse Reactions: Allergies Allergy/AdvReac Type Severity Reaction Status Date / Time Penicillins Allergy Rash Verified 03/27/24 16:01 - Social History Does the pt smoke?: No Smoking Status: Never smoker Does the pt drink ETOH?: Yes ETOH Use: Liquor Does the pt have substance abuse?: No - Immunizations Immunizations are current?: Yes - POLST Patient has POLST: No Results - Vitals Vitals: Vital Signs - 24 hr 03/27/24 03/27/24 03/27/24 16:01 16:08 16:35 Temperature 36.3 C L Heart Rate 64 66 Heart Rate [ 65 Sitting] Heart Rate [ 69 Standing] Heart Rate [ 64 Supine] Respiratory 16 22 Rate Blood Pressure 105/65 107/66 Blood Pressure 91/55 L [Sitting] Blood Pressure 93/54 L [Standing] Blood Pressure 99/59 L [Supine] O2 Saturation 98 97 03/27/24 18:03 Temperature Heart Rate 66 Heart Rate [ Sitting] Heart Rate [ Standing] Heart Rate [ Supine] Respiratory 18 Rate Blood Pressure 124/65 Blood Pressure [Sitting] Blood Pressure [Standing] Blood Pressure [Supine] O2 Saturation 99 Oxygen O2 Source Room air - Labs Labs: Laboratory Tests 03/27/24 03/27/24 16:23 16:23 WBC 12.7 H RBC 3.93 L Hgb 13.0 L Hct 38.6 L MCV 98.2 H MCH 33.1 H MCHC 33.7 RDW 14.2 Plt Count 195 MPV 9.0 Neut # (Auto) 11.1 H Lymph # (Auto) 0.7 L [place] # (Auto) 0.8 Eos # (Auto) 0.0 Baso # (Auto) 0.0 Absolute Nucleated RBC 0.00 Nucleated RBC % 0.0 Sodium 132 L Potassium 4.7 H Chloride 99 L Carbon Dioxide 22 Anion Gap 11.0 BUN 29 H Creatinine 2.2 H Estimated GFR (MDRD) 29 L Glucose 114 H Calcium 9.4 Total Bilirubin 0.5 AST 17 ALT 24 Alkaline Phosphatase 66 Troponin I High Sens 29.6 H* Total Protein 7.1 Albumin 4.3 Globulin 2.8 Albumin/Globulin Ratio 1.5 Ethyl Alcohol < 10.0 PD Medical Decision Making - ED course Complexity details: reviewed old records, reviewed results, re-evaluated patient ED course: Patient is a 73-year-old male presenting to the emergency department with symptoms of lightheadedness that started shortly after going to the store earlier today. Patient returned around 11 and laid down to take a nap when he woke back up he was still feeling lightheaded so he came to the emergency department. Patient was seen in the emergency department for similar symptoms on 815. At that time he most likely to too many of his blood pressure medications and was instructed to stop taking these medications for only 3 days. Patient stopped taking them for about a week before he restarted on them a few days ago. He notes he was feeling fine until today. On arrival patient slightly hypotensive blood pressure SBP at 99. He remains afebrile nontachycardic. Patient is on losartan and spironolactone and carvedilol, He notes he did take all of these medications today. Labs obtained here in the emergency department show mild hyponatremia and hyperkalemia at potassium of 4.7. No EKG changes appreciated. EKG shows incomplete left bundle branch block similar to previous EKG obtained on 03/14 no acute findings. Additionally elevated troponin returned at 29 however this a ppears to be based patient's baseline compared to previous troponin levels With most recent ones on 81 when patient was here previously with no significant change as well as troponin at that time was 28.9.. Patient additionally has No EKG changes compared to previous EKG on 81. Patient continues to deny any chest pain or shortness of breath. Labs show elevated creatinine level at 2.2 however this is improved from previous at 2.7. Patient's baseline appears closer to 1. Patient given hyperkalemia and hypotension small amount of fluids given for patient to see if this will help with his symptoms. Patient's blood pressure improved to 127 SBP here in emergency department. He was road tested and symptoms resolved here in the emergency department. Discussed with patient reassuring findings on labs and EKG. He feels significantly better. Discussed with patient symptoms could be secondary to dehydration. Instructed patient he should decrease alcohol intake and increase water and fluid intake. He was instructed to monitor for any persistent lightheadedness symptoms. Will also have patient hold losartan at home as he did not have any similar symptoms while he was off this blood pressure medication last week. Additionally instructed patient to monitor his blood pressures closely at home.Patient understands and is agreeable with this plan. Departure - Departure Disposition: 01 Home, Self Care Clinical Impression: Lightheadedness, Alcohol use, CKD (chronic kidney disease), Hypotension, Dehydration, Side effect of medication Condition: Good Comments: You were seen here in the emergency department for lightheadedness symptoms. Your symptoms most likely secondary to dehydration as well as blood pressure medications I recommend you holding your losartan dose at home and follow-up with your PCP PCP for blood pressure medication medication reevaluation next week and blood pressure checking. You should drink lots of fluids when you return home as you were slightly dehydrated when you were here in the emergency department. If symptoms return return to emergency department. Watch your blood pressures closely at home return with any chest pain shortness of breath lower leg swelling fevers or any other new or worsening symptoms. Forms: PCP List
[2024-03-27 16:32] LABS: BASOPHILS % (AUTO) 0.2 %; HCT - HEMATOCRIT 38.6 % (42.0-52.0); LYMPHOCYTES # (AUTO) 0.7 10^3/uL (1.5-3.5); LYMPHOCYTES % (AUTO) 5.5 %; MEAN CORPUSCULAR HEMOGLOBIN 33.1 pg (27.0-31.0); MEAN CORPUSCULAR HGB CONC 33.7 g/dL (32.0-36.0); MEAN CORPUSCULAR VOLUME 98.2 fL (80.0-94.0); MONOCYTES # (AUTO) 0.8 10^3/uL (0.0-1.0); MONOCYTES % (AUTO) 6.2 %; NEUTROPHILS # (AUTO) 11.1 10^3/uL (1.5-6.6); NEUTROPHILS % (AUTO) 87.6 %; PLT - PLATELET COUNT 195 10^3/uL (130-450); RED BLOOD COUNT 3.93 10^6/uL (4.70-6.10); RED CELL DISTRIBUTION WIDTH 14.2 % (12.0-15.0); WHITE BLOOD COUNT 12.7 x10^3/uL (4.8-10.8)
[2024-03-27 16:46] LABS: ALBUMIN 4.3 g/dL (3.2-5.5); ALBUMIN/GLOBULIN RATIO 1.5 (1.0-2.2); ALKALINE PHOSPHATASE 66 IU/L (42-121); ALT ALANINE AMINOTRANSFERASE 24 IU/L (10-60); AST ASPARTATE AMINOTRANSFERASE 17 IU/L (10-42); BILIRUBIN,TOTAL 0.5 mg/dL (0.2-1.0); BUN - BLOOD UREA NITROGEN 29 mg/dL (6-20); CALCIUM 9.4 mg/dL (8.5-10.3); CARBON DIOXIDE - CO2 22 mmol/L (21-32); CHLORIDE 99 mmol/L (101-111); CREATININE 2.2 mg/dL (0.6-1.3); GFR - MDRD 29 (>89); GLUCOSE 114 mg/dL (74-104); POTASSIUM 4.7 mmol/L (3.5-4.5); SODIUM 132 mmol/L (135-145); TOTAL PROTEIN 7.1 g/dL (6.4-8.9)
--- NOTE | 2024-03-27 16:46 | XRAY Report ---
PROCEDURE: Chest 1V INDICATIONS: dizziness, sob TECHNIQUE: One view of the chest was acquired. COMPARISON: None. FINDINGS: Surgical changes and devices: None. Lungs and pleura: No pleural effusions or pneumothorax. Lungs are clear. Mediastinum: Mediastinal contours appear normal. Heart size is enlarged. Bones and chest wall: No suspicious bony lesions. Overlying soft tissues appear unremarkable. IMPRESSION: No acute cardiopulmonary process. Reviewed by: Harrison Martinez MD on 03/27/2024 4:44 PM PDT Approved by: Harrison Martinez MD on 03/27/2024 4:44 PM PDT Station ID: [id number]
[2024-03-27 16:53] LABS: TROPONIN I HIGH SENSITIVITY 29.6 ng/L (2.3-19.7)
[2024-03-27 17:01] LABS: ETOH - ETHANOL < 10.0 mg/dL
[2024-03-27] MEDS: SODIUM CHLORIDE 0.9% 500 ML IV STA (17:11)
[2024-03-27 18:11] VITALS: BP 124/65; O2SAT 99
== END 2024-03-27 18:47 | disposition home or self-care (01) ==
LOC: ED 15:42
DX: R42 Dizziness and giddiness (principal); T46.5X5A Adverse effect of other antihypertensive drugs, initial encounter; E86.0 Dehydration; E87.5 Hyperkalemia; I95.9 Hypotension, unspecified; N18.9 Chronic kidney disease, unspecified; I10 Essential (primary) hypertension
CPT/HCPCS: 36415; 71045; 80053; 84484; 85025; 93005; 96360; 99284; G0480; 82077